=== PATIENT | male | born 1945 | race Caucasian/White ===

== ENCOUNTER 2020-09-27 19:11 | Observation (INO) | payer OTHER ==
[2020-09-27] MEDS ORDERED: ONDANSETRON 4 MG/2 ML VIAL ONE (19:41)
[2020-09-27] MEDS ORDERED: FAMOTIDINE 20 MG/2 ML VIAL IV ONE (19:51)
[2020-09-27] MEDS ORDERED: NA CHLORIDE 0.9% 1,000 ML ONE ×2 (19:51→21:50)
--- NOTE | 2020-09-27 19:57 | RAD REPORT ---
EXAM DESCRIPTION: CT - Head Brain Wo Cont - 09/27/2020 7:43 pm CLINICAL HISTORY: Dizziness;Weakness Headache, drowsiness COMPARISON: HEAD BRAIN W O CONTRAST dated 01/05/2015; MR STROKE PROTOCOL dated 01/06/2015 TECHNIQUE: All CT scans are performed using dose optimization technique as appropriate and may inclu de automated exposure control or mA/KV adjustment according to patient size. FINDINGS: No intracranial hemorrhage, hydrocephalus or extra-axial fluid collection.Mild generalized brain atrophy.No areas of brain edema or evidence of midline shift. The paranasal sinuses and mastoids are clear. The calvarium is intact. IMPRESSION: No acute intracranial abnormality.
--- NOTE | 2020-09-27 19:59 | RAD REPORT ---
EXAM DESCRIPTION: RAD - Chest Single View - 09/27/2020 7:52 pm CLINICAL HISTORY: COUGH Chest pain. COMPARISON: CHEST SINGLE VIEW dated 01/06/2015; CHEST SINGLE VIEW dated 01/05/2015 FINDINGS: Portable technique limits examination quality. The lungs are underinflated but grossly clear. The heart is normal in size. No displaced fractures. IMPRESSION: No acute intrathoracic process suspected.
[2020-09-27 20:04] LABS: Absolute Lymphocytes (CBC) 2.1 K/uL (0.7-4.9); Basophils % 0.7 % (0-1.3); Hematocrit 38.6 % (39.6-49.0); Lymphocytes % 39.3 % (15.3-44.8); MPV 8.9 fL (7.6-11.3); RBC Red Blood Cell Count 4.02 M/uL (4.33-5.43)
[2020-09-27 20:07] LABS: Protime INR 0.97
[2020-09-27 20:14] LABS: ALT/SGPT 18 U/L (12-78); AST/SGOT 18 U/L (15-37); Albumin 3.3 g/dL (3.4-5.0); Alkaline Phosphatase 71 U/L (45-117); BUN Blood Urea Nitrogen 18 mg/dL (7-18); Bicarbonate 20 mmol/L (21-32); Bilirubin Direct < 0.1 mg/dL (0-0.2); Bilirubin Total 0.4 mg/dL (0.2-1.0); Glucose Level 108 mg/dL (74-106); Lipase 257 U/L (73-393); Magnesium 2.3 mg/dL (1.8-2.4); NT PRO-BNP 939 pg/mL (<450); Potassium 3.8 mmol/L (3.5-5.1); Protein, Total 6.8 g/dL (6.4-8.2); Sodium Level 140 mmol/L (136-145); Troponin (Emerg Dept Use Only) < 0.02 ng/mL (0.0-0.045)
--- NOTE | 2020-09-27 20:53 | RAD REPORT ---
EXAM DESCRIPTION: - CP - 09/27/2020 8:31 pm CLINICAL HISTORY: Dizziness;Syncope COMPARISON: CAROTID ARTERY BILATERAL dated 01/05/2015 TECHNIQUE: Real-time sonographic evaluation of both carotid systems was performed. Doppler interroga tion was performed with waveform tracing bilaterally. FINDINGS: Normal high resistance waveforms are noted in both external carotid arteries. The common c arotid arteries and internal carotid arteries show normal low resistance waveforms. Moderate hard plaque is seen involving both carotid bulbs. Visually, carotid bulb narrowing is estima ti at 50% based on NASCET criteria. No hemodynamically significant stenosis identified. Antegrade flow seen in both vertebral arteries. IMPRESSION: Moderate hard plaquing involving both proximal internal carotid arteries. No evidence of a hemodynamically significant stenosis.
--- NOTE | 2020-09-27 21:13 | RAD REPORT ---
EXAM DESCRIPTION: US - Extrem Venous W Compress Yemi - 09/27/2020 9:06 pm CLINICAL HISTORY: SWELLING Bilateral leg edema and swelling. COMPARISON: No comparisons TECHNIQUE: Real-time sonographic interrogation of the left and right lower extremity deep venous sys tems was performed. FINDINGS: Normal compressibility, flow augmentation, phasic flow and spontaneous flow is identified in both the left and right lower extremity deep venous systems. IMPRESSION: No sonographic evidence of left or right lower extremity deep venous thrombosis.
--- NOTE | 2020-09-27 21:19 | EDPHYS ---
Physician Documentation [facility] Name: Luis Joyner Age: 75 yrs Sex: Male : 1945 Arrival Date: 09/27/2020 Time: 19:10 Bed 6 Private MD: ED Physician Conrad Holguin HPI: 09/27 19:34 This 75 yrs old Male presents to ER via Wheelchair with complaints of Near gil Syncope, Vomiting. 19:34 The patient has experienced near-syncope, almost passed out, felt dizzy, felt generally gil weak. Onset: The symptoms/episode began/occurred just prior to arrival. Duration: This was a single episode, that lasted 20 second(s). Context: the episode(s) was witnessed, by family, occurred at home. Associated injury: The patient did not suffer any apparent associated injury. Associated signs and symptoms: The patient has no apparent associated signs or symptoms. Current symptoms: weak, nausea. The patient has not experienced similar symptoms in the past. Historical: - Allergies: 19:20 No Known Allergies; ss - PMHx: 19:20 Viral encephalitis; polio; Ischemic Stroke; Hypothyroidism; ss - PSHx: 19:20 Appendectomy; ss - Immunization history:: Adult Immunizations up to date. - Social history:: Smoking status: Patient denies any tobacco usage or history of. - Family history:: not pertinent. ROS: 19:34 Constitutional: Negative for fever, chills, and weight loss, Eyes: Negative for injury, gil pain, redness, and discharge, ENT: Negative for injury, pain, and discharge, Neck: Negative for injury, pain, and swelling, Cardiovascular: Negative for chest pain, palpitations, and edema, Respiratory: Negative for shortness of breath, cough, wheezing, and pleuritic chest pain, Back: Negative for injury and pain, : Negative for injury, bleeding, discharge, and swelling, MS/Extremity: Negative for injury and deformity, Skin: Negative for injury, rash, and discoloration, Psych: Negative for depression, anxiety, suicide ideation, homicidal ideation, and hallucinations, Allergy/Immunology: Negative for hives, rash, and allergies, Endocrine: Negative for neck swelling, polydipsia, polyuria, polyphagia, and marked weight changes. 19:34 Abdomen/GI: Positive for nausea and vomiting. 19:34 Neuro: Positive for dizziness, near syncope. Exam: 19:34 Constitutional: This is a well developed, well nourished patient who is awake, alert, gil and in no acute distress. Head/Face: Normocephalic, atraumatic. Eyes: Pupils equal round and reactive to light, extra-ocular motions intact. Lids and lashes normal. Conjunctiva and sclera are non-icteric and not injected. Cornea within normal limits. Periorbital areas with no swelling, redness, or edema. ENT: Nares patent. No nasal discharge, no septal abnormalities noted. Tympanic membranes are normal and external auditory canals are clear. Oropharynx with no redness, swelling, or masses, exudates, or evidence of obstruction, uvula midline. Mucous membranes moist. Neck: Trachea midline, no thyromegaly or masses palpated, and no cervical lymphadenopathy. Supple, full range of motion without nuchal rigidity, or vertebral point tenderness. No Meningismus. Chest/axilla: Normal chest wall appearance and motion. Nontender with no deformity. No lesions are appreciated. Respiratory: Lungs have equal breath sounds bilaterally, clear to auscultation and percussion. No rales, rhonchi or wheezes noted. No increased work of breathing, no retractions or nasal flaring. Abdomen/GI: Soft, non-tender, with normal bowel sounds. No distension or tympany. No guarding or rebound. No evidence of tenderness throughout. Back: No spinal tenderness. No costovertebral tenderness. Full range of motion. Male : Normal genitalia with no discharge or lesions. Skin: Warm, dry with normal turgor. Normal color with no rashes, no lesions, and no evidence of cellulitis. MS/ Extremity: Pulses equal, no cyanosis. Neurovascular intact. Full, normal range of motion. Neuro: Awake and alert, GCS 15, oriented to person, place, time, and situation. Cranial nerves II-XII grossly intact. Motor strength 5/5 in all extremities. Sensory grossly intact. Cerebellar exam normal. Normal gait. Psych: Awake, alert, with orientation to person, place and time. Behavior, mood, and affect are within normal limits. 19:34 Cardiovascular: Rate: bradycardic, Rhythm: regular, Pulses: no pulse deficits are appreciated, Heart sounds: normal, Edema: 2+ edema to level of left midcalf and right midcalf, JVD: is not appreciated. 19:40 ECG was reviewed by the Attending Physician. gil 20:44 Abdomen/GI: Inspection: abdomen appears normal, Bowel sounds: normal, Palpation: gil abdomen is soft and non-tender, Rectal exam: is unremarkable, Prostate: normal, rectal tone normal, Stool: guaiac negative, hemorrhoid(s), are not appreciated, mass, is not appreciated, swelling, is not appreciated, tenderness, is not appreciated, fecal impaction, is not appreciated, Liver: no appreciated palpable abnormalities, Hernia: not appreciated. Vital Signs: 19:11 BP 156 / 79; Pulse 61; Resp 18; Temp 96.9(TE); Pulse Ox 98% on R/A; Weight 88 kg; ss Height 5 ft. 9 in. (175.26 cm); Pain 0/10; 22:19 BP 152 / 80; Pulse 66; Resp 18; Temp 97.2; Pulse Ox 100% on R/A; sg 19:11 Body Mass Index 28.65 (88.00 kg, 175.26 cm) ss MDM: 19:29 Patient medically screened. gil 19:38 Differential Diagnosis: cardiac arrhythmia, cerebrovascular accident, GI bleed, gil idiopathic syncope, pseudo seizure, seizure, transient ischemic attack, vasovagal episode. Data reviewed: vital signs, nurses notes, lab test result(s), EKG, radiologic studies, CT scan, plain films. Data interpreted: potline monitor: rate is 61 beats/min, rhythm is regular, with no ectopy, Pulse oximetry: on room air is 98 %. Test interpretation: by ED physician or midlevel provider: ECG, plain radiologic studies. Counseling: I had a detailed discussion with the patient and/or guardian regarding: the historical points, exam findings, and any diagnostic results supporting the discharge/admit diagnosis, lab results, radiology results. 09/27 19:32 Order name: Basic Metabolic Panel [facility] 09/27 18: Order name: CBC with Diff [facility] 09/27 18:32 Order name: LFT's [facility] 09/27 18:32 Order name: Magnesium; Complete Time: 20:19 [facility] 09/27 19:32 Order name: NT PRO-BNP; Complete Time: 20:19 [facility] 09/27 18:32 Order name: PT-INR; Complete Time: 20:34 [facility] 09/27 19:32 Order name: Troponin (emerg Dept Use Only); Complete Time: 20:19 [facility] 09/27 19:32 Order name: Lipase; Complete Time: 20:19 [facility] 09/27 19:32 Order name: Type And Screen; Complete Time: 21:11 [facility] 09/27 19:32 Order name: D-Dimer; Complete Time: 20:34 [facility] 09/27 19:33 Order name: Glucose, Ancillary Testing; Complete Time: 19:33 EDPR 09/27 19:33 Order name: Basic Metabolic Panel; Complete Time: 20:19 EDPR 09/27 19:33 Order name: CBC with Automated Diff; Complete Time: 20:34 EDPR 09/27 19:32 Order name: XRAY Chest (1 view); Complete Time: 20:02 [facility] 09/27 19:32 Order name: CT Head Brain wo Cont; Complete Time: 20:02 [facility] 09/27 19:32 Order name: US Carotid Artery Bilateral; Complete Time: 21:11 [facility] 09/27 19:33 Order name: Liver (Hepatic) Function; Complete Time: 20:19 [facility] 09/27 19:41 Order name: TSH; Complete Time: 20:34 [facility] 09/27 20:36 Order name: CT Chest Abdomen Pelvis W/O Contrast: new onset rf 09/27 20:36 Order name: US Extremity Venous W Compression Yemi; Complete Time: 21:35 [facility] 09/27 20:47 Order name: ETOH Level; Complete Time: 21:35 [facility] 09/27 21:23 Order name: SARS-COV-2 RT PCR; Complete Time: 21:35 [facility] 09/27 21:40 Order name: ABO/RH no charge; Complete Time: 21:44 [facility] 09/27 19:32 Order name: EKG; Complete Time: 19:33 [facility] 09/27 19:32 Order name: Cardiac monitoring; Complete Time: 19:39 [facility] 09/27 19:32 Order name: EKG - Nurse/Tech; Complete Time: 19:39 [facility] 09/27 19:32 Order name: IV Saline Lock; Complete Time: 19:39 [facility] 09/27 19:32 Order name: Labs collected and sent; Complete Time: 19:39 [facility] 09/27 19:32 Order name: O2 Per Protocol; Complete Time: 19:39 [facility] 09/27 19:32 Order name: O2 Sat Monitoring; Complete Time: 19:39 gil EC:40 Rate is 55 beats/min. Rhythm is regular. QRS [place] is Normal. CT interval is normal. QRS gil interval is normal. QT interval is normal. No Q waves. T waves are Normal. No ST changes noted. Clinical impression: Sinus bradycardia and No evidence of ischemia. Interpreted by me. Reviewed by me. Administered Medications: Discontinued: NS 0.9% 1000 ml IV at 125 ml/hr continuous 19:28 Drug: Zofran (Ondansetron) 4 mg Route: IVP; Site: right antecubital; mg2 22:43 Follow up: Response: No adverse reaction mg2 19:38 Drug: Pepcid 20 mg Route: IVP; Site: right antecubital; mg2 19:39 Drug: NS 0.9% 1000 ml Route: IV; Rate: 125 ml/hr; Site: right antecubital; mg2 21:42 Drug: Thiamine 100 mg Route: IV; Rate: bolus; Site: right antecubital; mg2 22:43 Follow up: Response: No adverse reaction; IV Status: Completed infusion mg2 21:42 Drug: Banana Bag - (NS 0.9% 1000 ml, foLIC Acid 1 mg, Thiamine 100 mg, Multivitamin 1 mg2 amp) Route: IV; Rate: 125 ml/hr; Site: right antecubital; 22:43 Follow up: Response: No adverse reaction; IV Status: Infusion continued upon admission mg2 22:41 Drug: Lovenox 60 mg Route: Sub-Q; Site: right lower abdomen; mg2 22:42 Follow up: Response: No adverse reaction mg2 Disposition: 09/27/20 21:19 Hospitalization ordered by Ministerio Chase for Inpatient Admission. Preliminary diagnosis are Syncope and collapse - x 2, Acute kidney failure, Edema, unspecified, Vomiting - alcohol ingestion, Alcohol abuse with intoxication. - Bed requested for Telemetry/MedSurg (observation). - Status is Inpatient Admission. mg2 - Condition is Fair. - Problem is new. - Symptoms have improved. Signatures: Dispatcher [employer] EDMS Serina Maldonado RN RN dw Anderson, Corey, MD MD cha Smirch, Shelby, RN RN ss Gardose, Michele, RN RN mg2 Corrections: (The following items were deleted from the chart) 20:17 19:33 CORONAVIRUS+MR.LAB.BRZ ordered. EDMS EDMS 20:39 20:38 Extrem Venous W Compress Yemi ordered. EDMS EDMS 21:33 21:19 Hospitalization Ordered by Ministerio Chase MD for Inpatient Admission. Preliminary dw diagnosis is Syncope and collapse - x 2; Acute kidney failure; Edema, unspecified; Vomiting - alcohol ingestion. Bed requested for Telemetry/MedSurg (observation). Status is Inpatient Admission. Condition is Fair. Problem is new. Symptoms have improved. gil 21:36 21:33 09/27/2020 21:19 Hospitalization Ordered by Ministerio Chase MD for Inpatient gil Admission. Preliminary diagnosis is Syncope and collapse - x 2; Acute kidney failure; Edema, unspecified; Vomiting - alcohol ingestion. Bed requested for Telemetry/MedSurg (observation). Status is Inpatient Admission. Condition is Fair. Problem is new. Symptoms have improved. dw 22:44 21:36 09/27/2020 21:19 Hospitalization Ordered by Ministerio Chase MD for Inpatient mg2 Admission. Preliminary diagnosis is Syncope and collapse - x 2; Acute kidney failure; Edema, unspecified; Vomiting - alcohol ingestion; Alcohol abuse with intoxication. Bed requested for Telemetry/MedSurg (observation). Status is Inpatient Admission. Condition is Fair. Problem is new. Symptoms have improved. gil
--- NOTE | 2020-09-27 21:19 | ER ---
Nurse's Notes [facility] Name: Luis Joyner Age: 75 yrs Sex: Male : 1945 Arrival Date: 09/27/2020 Time: 19:10 Bed 6 Private MD: Diagnosis: Syncope and collapse-x 2;Acute kidney failure;Edema, unspecified;Vomiting-alcohol ingestion;Alcohol abuse with intoxication Presentation: 09/27 19:11 Chief complaint: Patient states: "I was cooking and I looked up and got real dizzy and ss that's the last thing I remember. My got my attention and that's when we came here." Syncopal episode was observed by upon arrival to ED. When ED staff got to patient, he was noted to be pale, cool and clammy. Coronavirus screen: Client denies travel out of the [place] in the last 14 days. Ebola Screen: Patient denies exposure to infectious person. Patient denies travel to an Ebola-affected area in the 21 days before illness onset. Initial Sepsis Screen: Does the patient meet any 2 criteria? No. Patient's initial sepsis screen is negative. Does the patient have a suspected source of infection? No. Patient's initial sepsis screen is negative. Risk Assessment: Do you want to hurt yourself or someone else? Patient reports no desire to harm self or others. Onset of symptoms was September 27, 2020. 19:11 Method Of Arrival: Wheelchair ss 19:11 Acuity: KAELA 3 ss 20:47 Note pt admits to drinking wine this evening. 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 - Social history:: Smoking status: Patient denies any tobacco usage or history of. - Family history:: not pertinent. Screenin:21 Abuse screen: Denies threats or abuse. Denies injuries from another. Nutritional mg2 screening: No deficits noted. Tuberculosis screening: No symptoms or risk factors identified. Fall Risk IV access (20 points). Assessment: 19:20 General: Appears in no apparent distress. comfortable, Behavior is calm, cooperative. mg2 Pain: Denies pain. Neuro: Level of Consciousness is awake, alert, obeys commands, Oriented to person, place, time, situation. Cardiovascular: Capillary refill < 3 seconds Patient's skin is warm and dry. Respiratory: Airway is patent Respiratory effort is even, unlabored, Respiratory pattern is regular, symmetrical. GI: Abdomen is non-distended. : No signs and/or symptoms were reported regarding the genitourinary system. EENT: No signs and/or symptoms were reported regarding the EENT system. Derm: Skin is intact, is healthy with good turgor, Skin is pink, warm \\T\\ dry. normal. Musculoskeletal: Circulation, motion, and sensation intact. Capillary refill < 3 seconds. 22:18 Reassessment: requesting this patient to wait in the ED for CT scan results sg and Lovenox SubQ pending order. pt to remain in the ED at this time. Vital Signs: 19:11 BP 156 / 79; Pulse 61; Resp 18; Temp 96.9(TE); Pulse Ox 98% on R/A; Weight 88 kg; ss Height 5 ft. 9 in. (175.26 cm); Pain 0/10; 22:19 BP 152 / 80; Pulse 66; Resp 18; Temp 97.2; Pulse Ox 100% on R/A; sg 19:11 Body Mass Index 28.65 (88.00 kg, 175.26 cm) ED Course: 19:10 Patient arrived in ED. ss 19:11 Solomon Jones, RN is Primary Nurse. mg2 19:18 Triage completed. ss 19:20 Arm band placed on right wrist. ss 19:20 No provider procedures requiring assistance completed. Inserted saline lock: 20 gauge mg2 in right antecubital area, using aseptic technique. Blood collected. 19:21 Patient has correct armband on for positive identification. mg2 19:29 Conrad Holguin MD is Attending Physician. gil 19:43 CT Head Brain wo Cont In Process Unspecified. EDMS 19:50 XRAY Chest (1 view) In Process Unspecified. EDMS 20:27 Notified ED physician of a critical lab result(s). D Dimer 768. sg 20:31 US Carotid Artery Bilateral In Process Unspecified. EDMS 21:06 US Extremity Venous W Compression Yemi In Process Unspecified. EDMS 21:16 Ministerio Chase MD is Hospitalizing Provider. [facility] 22:40 Patient admitted, IV remains in place. intact, No redness/swelling at site. sg Administered Medications: Discontinued: NS 0.9% 1000 ml IV at 125 ml/hr continuous 19:28 Drug: Zofran (Ondansetron) 4 mg Route: IVP; Site: right antecubital; mg2 22:43 Follow up: Response: No adverse reaction mg2 19:38 Drug: Pepcid 20 mg Route: IVP; Site: right antecubital; mg2 19:39 Drug: NS 0.9% 1000 ml Route: IV; Rate: 125 ml/hr; Site: right antecubital; mg2 21:42 Drug: Thiamine 100 mg Route: IV; Rate: bolus; Site: right antecubital; mg2 22:43 Follow up: Response: No adverse reaction; IV Status: Completed infusion mg2 21:42 Drug: Banana Bag - (NS 0.9% 1000 ml, foLIC Acid 1 mg, Thiamine 100 mg, Multivitamin 1 mg2 amp) Route: IV; Rate: 125 ml/hr; Site: right antecubital; 22:43 Follow up: Response: No adverse reaction; IV Status: Infusion continued upon admission mg2 22:41 Drug: Lovenox 60 mg Route: Sub-Q; Site: right lower abdomen; mg2 22:42 Follow up: Response: No adverse reaction mg2 Outcome: 21:19 Decision to Hospitalize by Provider. [facility] 22:40 Admitted to Tele accompanied by tech, via wheelchair, room 203, with chart, Report sg called to Tasneem GAGE 22:40 Condition: stable 22:40 Instructed on the need for admit, safety practices, Demonstrated understanding of instructions, follow-up care. 22:44 Patient left the ED. mg2 Signatures: Dispatcher [employer] EDMS Jules Suarez RN RN sg Anderson, Corey, MD MD cha Smirch, Shelby, RN RN ss Gardose, Michele, RN RN mg2
[2020-09-27] MEDS ORDERED: THIAMINE 200 MG/2 ML INJ ONE (21:50)
[2020-09-27] MEDS ORDERED: MULTIVITAMINS 10 ML VIAL (INJ) IV ONE (21:51)
[2020-09-27] MEDS ORDERED: FOLIC ACID 5 MG/ML VIAL ONE (21:51)
[2020-09-27] MEDS ORDERED: ACETAMINOPHEN 325 MG TABLET PO PRN (22:06)
[2020-09-27] MEDS ORDERED: ONDANSETRON 4 MG/2 ML VIAL IV PRN (22:06)
[2020-09-27] MEDS ORDERED: ENOXAPARIN 40 MG/0.4 ML SQ ONE (22:55)
[2020-09-27 23:39] VITALS: BMI 29.1
[2020-09-28 04:43] VITALS: O2SAT 96
[2020-09-28 05:51] LABS: Absolute Lymphocytes (CBC) 0.9 K/uL (0.7-4.9); Basophils % 0.8 % (0-1.3); Hematocrit 33.5 % (39.6-49.0); MPV 8.8 fL (7.6-11.3); RBC Red Blood Cell Count 3.52 M/uL (4.33-5.43)
[2020-09-28 06:01] LABS: Potassium 4.3 mmol/L (3.5-5.1)
--- NOTE | 2020-09-28 07:08 | RAD REPORT ---
EXAM DESCRIPTION: RAD - Chest Single View - 09/28/2020 4:45 am CLINICAL HISTORY: Chest Pain COMPARISON: Portable September 27 TECHNIQUE: AP portable chest image was obtained 09/28/2020 4:45 am . FINDINGS: Lungs are clear. Cardiac silhouette remains enlarged in part due to prominent bilateral pe ricardial fat pads. Pulmonary vasculature within normal limits. No measurable pleural effusion and no pneumothorax. No acute bony abnormality seen. No acute aortic findings suspected. IMPRESSION: No acute cardiopulmonary process. No significant change from comparison.
[2020-09-28] MEDS ORDERED: ASPIRIN EC 81 MG TAB PO SCH (09:00)
[2020-09-28] MEDS ORDERED: CLOPIDOGREL 75 MG TABLET PO SCH (09:00)
[2020-09-28] MEDS ORDERED: ENOXAPARIN 60 MG/0.6 ML SQ SCH (09:00)
[2020-09-28] MEDS ORDERED: FOLIC ACID 1 MG, MULTIVITAMINS INJ 10 ML, THIAMINE HCL 100 MG in NA CHLORIDE 0.9% 1,000 ML IV SCH (09:00)
[2020-09-28] MEDS ORDERED: FAMOTIDINE 20 MG/2 ML VIAL IV SCH (09:00)
--- NOTE | 2020-09-28 09:20 | RAD REPORT ---
EXAM DESCRIPTION: NM - Vent Perfusion VQ Scan - 09/28/2020 9:12 am CLINICAL HISTORY: pe, shortness of breath COMPARISON: Noncontrast CT chest September 27, portable chest September 28 TECHNIQUE: The patient was administered approximately 20 mCi Xenon 133 gas with posterior projection inspiration, equilibrium, and washout views obtained. The patient was then administered approximatel y 7 mCi Tc-99m MAA labeled RBCs followed by standard 8 view protocol. FINDINGS: There is good distribution of the Xenon with no ventilation defects identified. Washout vi ews show a mild bilateral air trapping pattern. Perfusion images show no defects suspicious for pulmonary emboli. IMPRESSION: No evidence for pulmonary embolic disease. Mild diffuse air trapping pattern.
[2020-09-28 10:54] VITALS: BP 156/72; TEMP 98.8
--- NOTE | 2020-09-28 12:04 | P.SSS ---
Patient History Date of Service: 09/28/20 Reason for admission: SYNCOPE History of Present Illness: MR. FRENCH HAS HAD HISTORY OF ORTHOSTATIC HYPOTENSION HE HAS PASSED OUT MANY TIMES. HE STARTED DRINKNIG ALCOHOL AND PASSED OUT. HE IS BACK TO BASELINE. DR. MAYS DID ABOUT 12 IMAGING TESTS FOR THIS VISIT. HE POSSIBLY DID NOT NEED ANY. HE IS STABLE. HE WILL WALK BEFORE HE GOES. HE WILL BE CAREFUL TO USE WALKER AND NOT DRINK. HIS IS A VERY SMART LADY AND KNOWS HOW TO TAKE CARE OF HIM. Allergies No Known Allergies Allergy (Verified 01/06/15 02:40) Home Medications: Clopidogrel Bisulfate [Plavix*] 1 tab PO DAILY 09/27/20 Finasteride 5 mg PO DAILY 09/27/20 Folic Acid 1 tab PO DAILY 09/27/20 Levothyroxine Sodium 1 tab PO DAILY 09/27/20 Mecobalamin [B12 Active] 1 tab PO DAILY 09/27/20 Multivitamin 1 tab PO DAILY 09/27/20 Simvastatin 20 mg PO BEDTIME 09/27/20 Tamsulosin [Flomax*] 1 tab PO BID 09/27/20 Vit D3/Vit K2/Calc Frutoborate [Move Free Heysq-Tfblzu-W5-D3] 1 tab PO BEDTIME 09/27/20 bisoproloL fumarate [Zebeta*] 5 mg PO BID 09/27/20 - Past Medical/Surgical History Has patient received pneumonia vaccine in the past: Yes Diabetic: No -: polio -: spinal meningitis -: appy - Social History Smoking Status: Never smoker Alcohol use: Yes CD- Drugs: No Caffeine use: Yes Place of Residence: Home Review of Systems 10-point ROS is otherwise unremarkable Physical Examination - Vital Signs Temperature: 98.8 F Blood Pressure: 156/72 Pulse: 66 Respirations: 18 Pulse Ox (%): 94 - Physical Exam General: Alert, In no apparent distress HEENT: Atraumatic, PERRLA, Mucous membr. moist/pink, EOMI, Sclerae nonicteric Neck: Supple, 2+ carotid pulse no bruit, No LAD, Without JVD or thyroid abnormality Respiratory: Clear to auscultation bilaterally, Normal air movement Cardiovascular: Regular rate/rhythm, Normal S1 S2 Gastrointestinal: Normal bowel sounds, No tenderness Musculoskeletal: No tenderness Integumentary: No rashes Neurological: Normal gait, Normal speech, Normal strength at 5/5 x4 extr, Normal tone, Normal affect Lymphatics: No axilla or inguinal lymphadenopathy - Studies Laboratory Data (last 24 hrs) 09/27/20 19:35: PT 11.5, INR 0.97 09/27/20 19:35: WBC 5.2, Hgb 12.9 L, Hct 38.6 L, Plt Count 148 L 09/27/20 19:35: Sodium 140, Potassium 3.8, BUN 18, Creatinine 1.39 H, Glucose 108 H, Magnesium 2.3, Total Bilirubin 0.4, AST 18, ALT 18, Alkaline Phosphatase 71, Lipase 257 - Diagnosis (Problem(s)) (1) Orthostatic hypotension Current Visit: Yes Status: Acute Plan: THIS IS NOT NEW FOR HIM KNOWS HOW TO TAKE CARE OF THIS. THERE IS NO EVENT LIKE STROKE OR WA. (2) ETOH abuse Onset Date: 01/06/15 Current Visit: No Status: Acute - Disposition Disposition: ROUTINE DISCHARGE
--- NOTE | 2020-09-28 14:11 | ECHO ---
HEIGHT: 5 ft 9 in WEIGHT: 197 lb 8 oz DATE OF STUDY: 09/28/[address]: Conrad Holguin MD 2-DIMENSIONAL: YES M.MODE: YES DOPPLER: YES COLOR FLOW: YES TDS: NO PORTABLE: NO DEFINITY: NO BUBBLE STUDY: NO DIAGNOSIS: SYNCOPE CARDIAC HISTORY: CATHERIZATION: NO SURGERY: NO PROSTHETIC VALVE: NO PACEMAKER: NO MEASUREMENTS (cm) DIASTOLIC (NORMALS) SYSTOLIC (NORMALS) IVSd 1.2 (0.6-1.2) LA Diam 4.0 (1.9-4.0) LVEF 54% LVIDd 3.3 (3.5-5.7) LVIDs 2.4 (2.0-3.5) %FS 27% LVPWd 1.2 (0.6-1.2) Ao Diam 3.4 (2.0-3.7) 2 DIMENSIONAL ASSESSMENT: RIGHT ATRIUM: NORMAL LEFT ATRIUM: NORMAL RIGHT VENTRICLE: NORMAL LEFT VENTRICLE: NORMAL TRICUSPID VALVE: NORMAL MITRAL VALVE: MITRAL REGURGITATION PULMONIC VALVE: NORMAL AORTIC VALVE: NORMAL PERICARDIAL EFFUSION: NONE AORTIC ROOT: NORMAL LEFT VENTRICULAR WALL MOTION: NORMAL. DOPPLER/COLOR FLOW: SEE BELOW. COMMENTS: NORMAL LEFT VENTRICULAR EJECTION FRACTION 55-60%. MILD MITRAL REGURGITATION. POOR WINDOWS. TECHNOLOGIST: BALBINA RAMOS
--- NOTE | 2020-09-28 14:38 | RAD REPORT ---
EXAM DESCRIPTION: CT - Chest Abd Pelvis Wo Con - 09/28/2020 7:13 am CLINICAL HISTORY: The patient is 75 years old and is Male; Abdominal distention;Dyspnea TECHNIQUE: Axial computed tomography images of the chest, abdomen and pelvis without intravenous con trast. Sagittal and coronal reformatted images were created and reviewed. This CT exam was perfor med using one or more of the following dose reduction techniques: automated exposure control, adjus tment of the mA and/or kV according to patient size, and/or use of iterative reconstruction technique . COMPARISON: July 26, 2016 FINDINGS: CHEST: Lungs: Minimal subsegmental atelectasis or scarring at the left minor fissure. No focal lung cons olidation seen otherwise. Pleural space: Unremarkable. No significant effusion. No pneumothorax. Heart: Coronary arterial calcifications. Heart size within normal limits. No pericardial effusion. ABDOMEN: Liver: Unremarkable. Gallbladder and bile ducts: Hyperdense material seen within the gallbladder, likely sludge. No calcified stones. No ductal dilation. Pancreas: Unremarkable. No ductal dilation. Spleen: Unremarkable. No splenomegaly. Adrenals: Unremarkable. No mass. Kidneys and ureters: Right atrophic kidney, similar to prior. Nonspecific left perinephric strand ing, similar to prior. No hydronephrosis or nephrolithiasis. Stomach and bowel: Unremarkable. No obstruction. No mucosal thickening. PELVIS: Appendix: No findings to suggest acute appendicitis. Bladder: Unremarkable. No stones. Reproductive: Unremarkable as visualized. CHEST, ABDOMEN and PELVIS: Intraperitoneal space: Unremarkable. No significant fluid collection. No free air. Bones/joints: Spine and joint changes. No acute fracture. No dislocation. Soft tissues: Moderate left fat-containing inguinal hernia. Vasculature: Atherosclerotic vascular calcifications. No aortic aneurysm. Lymph nodes: Unremarkable. No enlarged lymph nodes. IMPRESSION: 1. No acute intra-abdominal abnormality. 2. Minimal subsegmental atelectasis or scarring at the left minor fissure. No focal lung consolidat ion seen otherwise. 3. Hyperdense material seen within the gallbladder, likely sludge. 4. See above for additional findings. Electronically signed by: Orion Tinsley MD 09/27/2020 10:20 PM CONCRETE SAW OPERATOR Due to temporary technical issues with the PACS/Fluency reporting system, reports are being signed by the in house radiologists without review as a courtesy to insure prompt reporting. The interpreting radiologist is fully responsible for the content of the report.
== END 2020-09-28 13:57 | disposition home or self-care (01) ==
LOC: ER 19:11 → ERHOLD 21:21 → 2ND 21:40
PROVIDERS: ADMIT Internal Medicine; ATTEND Internal Medicine
DX: I95.1 Orthostatic hypotension (principal); F10.10 Alcohol abuse, uncomplicated; Z86.73 Personal history of transient ischemic attack (TIA), and cerebral infarction without residual deficits; E03.9 Hypothyroidism, unspecified; Y90.3 Blood alcohol level of 60-79 mg/100 ml; R94.31 Abnormal electrocardiogram [ECG] [EKG]; Z20.822 Contact with and (suspected) exposure to COVID-19
CPT/HCPCS: 96365; 96368; 93306; 85025 ×2; 80048 ×2; 36415; 80320; 86900; 83735; 86850; 85610; 86901; 82947; 85379; 80076; 84443; 84484 ×3; 83690; 83880; 70450; 71250; 74176; 71045 ×2; 93880; 93970; 78582; 96375; 96372; 99285; U0003; J3411; J1650 ×2; J7030 ×2; J2405; A9558; A9540

== ENCOUNTER 2021-04-07 05:49 | Observation (INO) | payer OTHER ==
[2021-04-07 06:52] LABS: Absolute Lymphocytes (CBC) 1.1 K/uL (0.7-4.9); Basophils % 0.6 % (0-1.3); Hematocrit 40.4 % (39.6-49.0); Lymphocytes % 17.8 % (15.3-44.8); MPV 8.4 fL (7.6-11.3); Protime INR 1.01; RBC Red Blood Cell Count 4.68 M/uL (4.33-5.43)
[2021-04-07] MEDS ORDERED: ONDANSETRON 4 MG/2 ML VIAL ONE (06:58)
[2021-04-07] MEDS ORDERED: NITROGLYCERIN 0.4 MG/TAB SL ONE (06:59)
[2021-04-07 07:10] LABS: Albumin 3.9 g/dL (3.4-5.0); Bilirubin Direct 0.2 mg/dL (0-0.2); Bilirubin Total 0.6 mg/dL (0.2-1.0); Magnesium 2.2 mg/dL (1.8-2.4); Potassium 3.8 mmol/L (3.5-5.1); Protein, Total 7.5 g/dL (6.4-8.2); Troponin (Emerg Dept Use Only) 0.03 ng/mL (0.0-0.045)
[2021-04-07] MEDS ORDERED: LIDOCAINE VISCOUS 2% SOLN 15 ML UDC ONE (07:11)
[2021-04-07] MEDS ORDERED: MAGNES/ALUMIN/SIMET 30ML UCUP ONE (07:11)
--- NOTE | 2021-04-07 07:43 | RAD REPORT ---
EXAM DESCRIPTION: RAD - Chest Single View - 04/07/2021 7:08 am CLINICAL HISTORY: CHEST PAIN COMPARISON: Chest Single View dated 09/28/2020; Chest Single View dated 09/27/2020; CHEST SINGLE VIEW dated 01/06/2015; CHEST SINGLE VIEW dated 01/05/2015; Abdomen Exam Limited dated 04/07/2021 FINDINGS: Low lung volumes with basilar opacities likely represent atelectasis. The heart size is wi thin normal limits.No acute osseous abnormality. No significant pleural effusions or pneumothorax. IMPRESSION: Low lung volumes likely with basilar atelectasis.
[2021-04-07] MEDS ORDERED: MORPHINE 4 MG/ML SYR ONE ×2 (07:52→09:26)
--- NOTE | 2021-04-07 07:56 | RAD REPORT ---
EXAM DESCRIPTION: US - Abdomen Exam Limited - 04/07/2021 7:31 am CLINICAL HISTORY: ABD PAIN COMPARISON: Abdomen Pelvis W/Wo Contrast dated 07/26/2016; Chest Single View dated 04/07/2021 FINDINGS: Cholelithiasis noted. No gallbladder wall thickening is identified. No pericholecystic flu id. Visualized portions of the liver are unremarkable. No biliary ductal dilatation. IMPRESSION: Cholelithiasis without ancillary sonographic findings to suggest acute cholecystitis.
--- NOTE | 2021-04-07 08:08 | EDPHYS ---
Physician Documentation [facility] Name: Luis Joyner Age: 75 yrs Sex: Male : 1945 Arrival Date: 04/07/2021 Time: 05:52 Bed 5 Private MD: ED Physician Froylan Calvillo HPI: 04/07 07:33 This 75 yrs old Male presents to ER via Ambulatory with complaints of jr8 Epigastric Pain. 07:33 The patient presents with abdominal pain in the epigastric area. Onset: The jr8 symptoms/episode began/occurred acutely, this morning. The symptoms do not radiate. Associated signs and symptoms: Pertinent positives: nausea. The symptoms are described as steady. Modifying factors: The symptoms are alleviated by nothing, the symptoms are aggravated by nothing. Severity of pain: At its worst the pain was moderate in the emergency department the pain is unchanged. The patient has experienced a previous episode. The patient has not recently seen a physician. Patient stated that he woke up at 0100 this a.m. with abrupt onset epigastric pain that has been unrelenting since then. Has had this once before but was intermittent in nature.. Historical: - Allergies: 06:24 No Known Allergies; bb - Home Meds: 06:24 Plavix Oral [Active]; Simvastatin Oral [Active]; folic acid Oral [Active]; tamsulosin bb oral [Active]; finasteride oral [Active]; levothyroxine oral [Active]; - PMHx: 06:24 Hypothyroidism; ischemic stroke; Polio; viral encephalitis; bb - Immunization history:: Adult Immunizations up to date, Client reports having NOT received the Covid vaccine. - Social history:: Smoking status: Patient denies any tobacco usage or history of. ROS: 07:33 Eyes: Negative for injury, pain, redness, and discharge, ENT: Negative for injury, jr8 pain, and discharge, Neck: Negative for injury, pain, and swelling, Cardiovascular: Negative for chest pain, palpitations, and edema, Respiratory: Negative for shortness of breath, cough, wheezing, and pleuritic chest pain, Back: Negative for injury and pain, MS/Extremity: Negative for injury and deformity, Skin: Negative for injury, rash, and discoloration, Neuro: Negative for headache, weakness, numbness, tingling, and seizure. 07:33 Abdomen/GI: Positive for abdominal pain, nausea, diarrhea, Negative for vomiting. Exam: 07:33 Eyes: Pupils equal round and reactive to light, extra-ocular motions intact. Lids and jr8 lashes normal. Conjunctiva and sclera are non-icteric and not injected. Cornea within normal limits. Periorbital areas with no swelling, redness, or edema. ENT: Nares patent. No nasal discharge, no septal abnormalities noted. Tympanic membranes are normal and external auditory canals are clear. Oropharynx with no redness, swelling, or masses, exudates, or evidence of obstruction, uvula midline. Mucous membranes moist. Neck: Trachea midline, no thyromegaly or masses palpated, and no cervical lymphadenopathy. Supple, full range of motion without nuchal rigidity, or vertebral point tenderness. No Meningismus. Chest/axilla: Normal chest wall appearance and motion. Nontender with no deformity. No lesions are appreciated. Cardiovascular: Regular rate and rhythm with a normal S1 and S2. No gallops, murmurs, or rubs. Normal PMI, no JVD. No pulse deficits. Respiratory: Lungs have equal breath sounds bilaterally, clear to auscultation and percussion. No rales, rhonchi or wheezes noted. No increased work of breathing, no retractions or nasal flaring. Abdomen/GI: Soft, non-tender, with normal bowel sounds. No distension or tympany. No guarding or rebound. No evidence of tenderness throughout. Back: No spinal tenderness. No costovertebral tenderness. Full range of motion. Skin: Warm, dry with normal turgor. Normal color with no rashes, no lesions, and no evidence of cellulitis. MS/ Extremity: Pulses equal, no cyanosis. Neurovascular intact. Full, normal range of motion. Neuro: Awake and alert, GCS 15, oriented to person, place, time, and situation. Cranial nerves II-XII grossly intact. Motor strength 5/5 in all extremities. Sensory grossly intact. 07:33 Constitutional: The patient appears alert, in obvious pain. Vital Signs: 06:22 BP 172 / 83; Pulse 65; Resp 16 S; Temp 97.7(O); Pulse Ox 98% on R/A; Weight 88 kg (R); bb Height 5 ft. 8 in. (172.72 cm) (R); Pain 8/10; 07:30 BP 146 / 77; Pulse 61; Resp 18; Pulse Ox 100% on R/A; ph 08:30 BP 143 / 77; Pulse 58; Resp 16; Pulse Ox 97% on R/A; ph 09:24 BP 137 / 75; Pulse 59; Resp 18; Pulse Ox 95% on R/A; ph 06:22 Body Mass Index 29.50 (88.00 kg, 172.72 cm) MDM: 06:11 Patient medically screened. [facility] 07:32 Data reviewed: vital signs, nurses notes, lab test result(s), radiologic studies, jr8 ultrasound. Data interpreted: Pulse oximetry: on room air is 98 %. Interpretation: normal. Counseling: I had a detailed discussion with the patient and/or guardian regarding: the historical points, exam findings, and any diagnostic results supporting the discharge/admit diagnosis, lab results, radiology results, the need for further work-up and treatment in the hospital. ED course: Dr. Chase called and saw patient in ED. 04/07 06:27 Order name: Basic Metabolic Panel 04/07 06:27 Order name: CBC with Diff; Complete Time: 06:57 04/07 06:27 Order name: LFT's; Complete Time: 07:24 04/07 06:27 Order name: Magnesium; Complete Time: 07:24 04/07 06:27 Order name: NT PRO-BNP; Complete Time: 07:24 04/07 06:27 Order name: PT-INR; Complete Time: 07:24 04/07 06:27 Order name: Troponin (emerg Dept Use Only); Complete Time: 07:24 04/07 06:27 Order name: Basic Metabolic Panel; Complete Time: 07:24 EDLA 04/07 06:31 Order name: Lipase jr8 04/07 06:31 Order name: Lipase; Complete Time: 07:24 [facility] 04/07 09:57 Order name: SARS-COV-2 RT PCR; Complete Time: 10:06 EDLA 04/07 10:58 Order name: Troponin I; Complete Time: 11:06 EDLA 04/07 13:59 Order name: Troponin I; Complete Time: 14:38 EDLA 04/07 06:27 Order name: XRAY Chest (1 view); Complete Time: 08:06 04/07 06:27 Order name: EKG; Complete Time: 06:27 04/07 06:27 Order name: Cardiac monitoring; Complete Time: 06:27 04/07 06:27 Order name: EKG - Nurse/Tech; Complete Time: 06:27 04/07 06:27 Order name: IV Saline Lock; Complete Time: 06:27 04/07 06:27 Order name: Labs collected and sent; Complete Time: 06:27 04/07 06:27 Order name: O2 Per Protocol; Complete Time: 06:27 04/07 06:27 Order name: O2 Sat Monitoring; Complete Time: 06:27 04/07 06:48 Order name: US Abdomen Limited; Complete Time: 08:06 8 04/07 08:57 Order name: CONS Physician Consult EDMS Administered Medications: 06:42 Drug: Zofran (Ondansetron) 4 mg Route: IVP; Site: right antecubital; bb 06:42 Drug: Nitroglycerin 0.4 mg Route: Sublingual; bb 06:49 Drug: GI Cocktail without - (Maalox Suspension 30 ml, Lidocaine Liquid 2 % 15 ak2 ml) Route: PO; 07:37 Drug: morphine 4 mg Route: IVP; Site: right antecubital; ph 09:07 Drug: morphine 4 mg Route: IVP; Site: right antecubital; jd3 Disposition Summary: 04/07/21 08:07 Hospitalization Ordered Hospitalization Status: Observation 8 Provider: Ministerio Chase Condition: Stable [facility] Problem: new 8 Symptoms: have improved jr8 Bed/Room Type: Standard [facility] Location: Telemetry/MedSurg (observation)(04/07/21 14:07) dw Room Assignment: 206(04/07/21 14:07) Diagnosis - Epigastric pain jr8 - Other cholelithiasis without obstruction jr8 - Chest pain, unspecified jr8 Forms: - Medication Reconciliation Form jr8 - SBAR form jr8 Addendum: 04/08/2021 19:02 Co-signature as Attending Physician, Froylan buchanan Signatures: Dispatcher [employer] EDMS Letty Cormier RN RN sv Woody, Diana, RN RN dw Lam, Pin, MD MD pkl Ballard, Brenda, RN RN Kyle Whatley PA PA jr8 Brittani Morel RN RN Paddy Munroe RN RN jTahir García Corrections: (The following items were deleted from the chart) 04/07 09:01 08:43 CORONAVIRUS+.BRZ ordered. EDMS EDMS 09:24 08:07 Telemetry/MedSurg (observation) jr8 sv 09:24 08:07 jr8 sv 14: 09:24 [facility] ER [facility] sv dw : 09:24 ERHOLD- sv dw
--- NOTE | 2021-04-07 08:08 | ER ---
Nurse's Notes [facility] Name: Luis Joyner Age: 75 yrs Sex: Male : 1945 Arrival Date: 04/07/2021 Time: 05:52 Bed 5 Private MD: Diagnosis: Epigastric pain;Other cholelithiasis without obstruction;Chest pain, unspecified Presentation: 04/07 06:22 Chief complaint: Patient states: he started having chest pain this morning around 0100 bb and it has not gone away pain is 8/10. Coronavirus screen: At this time, the client does not indicate any symptoms associated with coronavirus-19. Ebola Screen: No symptoms or risks identified at this time. Initial Sepsis Screen: Does the patient meet any 2 criteria? No. Patient's initial sepsis screen is negative. Does the patient have a suspected source of infection? No. Patient's initial sepsis screen is negative. Risk Assessment: Do you want to hurt yourself or someone else? Patient reports no desire to harm self or others. Onset of symptoms was April 07, 2021. 06:22 Method Of Arrival: Ambulatory bb 06:22 Acuity: KAELA 2 bb Triage Assessment: 06:46 General: Behavior is calm, cooperative. ak2 Historical: - Allergies: 06:24 No Known Allergies; bb - Home Meds: 06:24 Plavix Oral [Active]; Simvastatin Oral [Active]; folic acid Oral [Active]; tamsulosin bb oral [Active]; finasteride oral [Active]; levothyroxine oral [Active]; - PMHx: 06:24 Hypothyroidism; ischemic stroke; Polio; viral encephalitis; bb - Immunization history:: Adult Immunizations up to date, Client reports having NOT received the Covid vaccine. - Social history:: Smoking status: Patient denies any tobacco usage or history of. Screenin:45 Abuse screen: Denies threats or abuse. Denies injuries from another. Nutritional ak2 screening: No deficits noted. Tuberculosis screening: No symptoms or risk factors identified. Fall Risk None identified. Assessment: 06:44 Pain: Complains of pain in chest and abdomen. GI: Reports epigastric pain. ak2 06:45 General: Appears in no apparent distress. Neuro: No deficits noted. Cardiovascular: No ak2 deficits noted. Respiratory: No deficits noted. 07:50 Reassessment: Patient appears in no apparent distress at this time. Patient and/or ph family updated on plan of care and expected duration. Pain level reassessed. Patient is alert, oriented x 3, equal unlabored respirations, skin warm/dry/pink. Pt c/o upper abdominal pain, denies nausea at this time, IV medication administered per provider order, at bedside, VSS. 09:20 Reassessment: Patient appears in no apparent distress at this time. Patient and/or ph family updated on plan of care and expected duration. Pain level reassessed. Patient is alert, oriented x 3, equal unlabored respirations, skin warm/dry/pink. Vital Signs: 06:22 BP 172 / 83; Pulse 65; Resp 16 S; Temp 97.7(O); Pulse Ox 98% on R/A; Weight 88 kg (R); bb Height 5 ft. 8 in. (172.72 cm) (R); Pain 8/10; 07:30 BP 146 / 77; Pulse 61; Resp 18; Pulse Ox 100% on R/A; ph 08:30 BP 143 / 77; Pulse 58; Resp 16; Pulse Ox 97% on R/A; ph 09:24 BP 137 / 75; Pulse 59; Resp 18; Pulse Ox 95% on R/A; ph 06:22 Body Mass Index 29.50 (88.00 kg, 172.72 cm) bb ED Course: 05:52 Patient arrived in ED. wm 06:11 Kyle Monge PA is PHCP. jr8 06:11 Froylan Calvillo MD is Attending Physician. jr8 06:20 Initial lab(s) drawn, by tx, sent to lab. Inserted saline lock: 20 gauge in right bb antecubital area, using aseptic technique. Blood collected. 06:24 Triage completed. bb 06:24 Arm band placed on Patient placed in an exam room, on a stretcher, on mule tender, bb on pulse oximetry. EKG completed in triage. Results shown to . 06:42 Lachelle Urbina, RN is Primary Nurse. bb 06:45 Patient has correct armband on for positive identification. ak2 06:45 No provider procedures requiring assistance completed. ak2 07:07 XRAY Chest (1 view) In Process Unspecified. EDMS 07:31 US Abdomen Limited In Process Unspecified. EDMS 07:57 Lipase Sent. sv 07:57 Basic Metabolic Panel Sent. sv 08:07 Ministerio Chase MD is Hospitalizing Provider. jr8 09:24 Patient admitted, IV remains in place. ph 09:24 COVID swab sent to lab. mh5 Administered Medications: 06:42 Drug: Zofran (Ondansetron) 4 mg Route: IVP; Site: right antecubital; bb 06:42 Drug: Nitroglycerin 0.4 mg Route: Sublingual; bb 06:49 Drug: GI Cocktail without - (Maalox Suspension 30 ml, Lidocaine Liquid 2 % 15 ak2 ml) Route: PO; 07:37 Drug: morphine 4 mg Route: IVP; Site: right antecubital; ph 09:07 Drug: morphine 4 mg Route: IVP; Site: right antecubital; jd3 Outcome: 08:07 Decision to Hospitalize by Provider. jr8 16:01 Patient left the ED. sv Signatures: Dispatcher [employer] EDMS Letty Cormier, RN RN Lachelle Urbina, RN RN bb Kyle Monge, KATIE PA jr8 Brittani Morel, RN RN Aggie Benitez Paddy Mauricio RN RN Tahir Shoemaker inYessy Metcalf
[2021-04-07] MEDS ORDERED: ONDANSETRON 4 MG/2 ML VIAL IV PRN (09:24)
[2021-04-07] MEDS ORDERED: MORPHINE 4 MG/ML SYR IV PRN (09:24)
[2021-04-07 10:59] VITALS: BMI 29.5
[2021-04-07] MEDS ORDERED: PNEUMOCOCCAL VACCINE 0.5 ML IMVAC ONE (14:00)
[2021-04-07] MEDS ORDERED: SODIUM CHLORIDE 0.9% 10ML INJ IV PRN (14:07)
[2021-04-07] MEDS ORDERED: ACETAMINOPHEN 325 MG TABLET PO PRN (14:14)
--- NOTE | 2021-04-07 14:14 | P.HP ---
Certification for Inpatient Patient admitted to: Inpatient With expected LOS: >2 Midnights Practitioner: I am a practitioner with admitting privileges, knowledge of patient current condition, hospital course, and medical plan of care. Services: Services provided to patient in accordance with Admission requirements found in Title 42 Section 412.3 of the Code of Federal Regulations Patient History Date of Service: 04/07/21 Reason for admission: EPIG PAIN. History of Present Illness: MR. FRENCH HAS HAD EPIG PAIN OFF AND ON FOR A FEW WEEKS. FOR LAST DAY IT IS CONSTANT AND HE COULD NOT SLEEP. IT WAS MODERATE IN SEVERITY. IT IS A SHARP PAIN, NO RADIATION, NO NAUSEA, NO DIAPHORESIS, NO VOMITING AND IT IS CONSTANT. Allergies No Known Allergies Allergy (Verified 01/06/15 02:40) Home medications list reviewed: Yes Home Medications: Clopidogrel Bisulfate [Plavix*] 1 tab PO DAILY 09/27/20 Finasteride 5 mg PO DAILY 09/27/20 Folic Acid 1 tab PO DAILY 09/27/20 Levothyroxine Sodium 1 tab PO DAILY 09/27/20 Multivitamin 1 tab PO DAILY 09/27/20 Simvastatin 20 mg PO BEDTIME 09/27/20 Tamsulosin [Flomax*] 1 tab PO BID 09/27/20 Acetaminophen [Tylenol*] 650 mg PO Q6H PRN tab 09/28/20 - Past Medical/Surgical History Has patient received pneumonia vaccine in the past: No Diabetic: No -: polio -: spinal meningitis -: appy - Family History Father Notes: Myocardial infarction - Social History Smoking Status: Former smoker Alcohol use: No CD- Drugs: No Caffeine use: Yes Place of Residence: Home Review of Systems 10-point ROS is otherwise unremarkable Physical Examination - Vital Signs Temperature: 98.0 F Blood Pressure: 149/82 Pulse: 75 Respirations: 20 Pulse Ox (%): 98 - Physical Exam General: Oriented x3, Moderate distress HEENT: Atraumatic, PERRLA, Mucous membr. moist/pink, EOMI, Sclerae nonicteric Neck: Supple, 2+ carotid pulse no bruit, No LAD, Without JVD or thyroid abnormality Respiratory: Clear to auscultation bilaterally, Normal air movement Cardiovascular: Regular rate/rhythm, Normal S1 S2 Gastrointestinal: Normal bowel sounds, No tenderness Musculoskeletal: No tenderness Integumentary: No rashes Neurological: Normal gait, Normal speech, Normal strength at 5/5 x4 extr, Normal tone, Normal affect Lymphatics: No axilla or inguinal lymphadenopathy - Studies Laboratory Data (last 24 hrs) 04/07/21 06:20: Lipase 215 04/07/21 06:20: PT 11.6, INR 1.01 04/07/21 06:20: WBC 6.00, Hgb 13.8, Hct 40.4, Plt Count 136 L 04/07/21 06:20: Sodium 138, Potassium 3.8, BUN 22 H, Creatinine 1.26, Glucose 99, Magnesium 2.2, Total Bilirubin 0.6, AST 12 L, ALT 18, Alkaline Phosphatase 79 Assessment and Plan - Problems (Diagnosis) (1) Epigastric pain Current Visit: Yes Status: Acute Plan: PAIN CHARACTER IS OF GI ORIGIN. IT CAN STILL BE CARDIAC. RBBB IS OLD. RISK FACTORS ARE KNOWN VASCULAR DISEASE AND AGE. HE WILL GET SURGICAL CONSULT AND CARDIOLOGY ALSO. SONOGRAM SHOWS GALL STONES BUT RUQ IS NOT TENDER. CAN'T MAKE A CLEAR CASE FOR GB INFECTION. ORDER PANTOPRAZOLE ALSO. (2) Right bundle branch block Current Visit: Yes Status: Chronic (3) Orthostatic hypotension Current Visit: No Status: Chronic - Advance Directives Does patient have a Living Will: Yes Does patient have a Durable POA for Healthcare: Yes - Code Status/Comfort Care Code Status: Full Code Critical Care: No
--- NOTE | 2021-04-07 16:04 | CON ---
Date of Consultation: 04/07/2021 Reason For Consultation: Epigastric pain ruling out cardiac etiology. History Of Present Illness: This is a 75-year-old male with history of hypothyroidism, dyslipidemia who was admitted with epigastric pain that was constant to a point that he could not sleep, sharp, no radiation. No nausea. Denies having any chest pain. He follows with Dr. Dominguez in the clinic and he had a stress test more than a year ago that came out normal. Past Medical History: As outlined above in the HPI. Medications: Refer to reconciliation sheet for detailed list. Allergies: NO KNOWN DRUG ALLERGIES. Family History: No premature coronary artery disease or cancer. Social History: Does not smoke or drink. Does not use any drugs. Review of Systems: All systems reviewed and they were negative except for mentioned in the HPI. Physical Examination: Vital Signs: Temperature is 98.0, pulse 75, breathing at 18, blood pressure 149/82, saturating 98% o n room air. General: Pleasant, elderly male, in no apparent distress. Head and Neck: Pupils are equal, reactive to light. Intact eye movements. No JVD. No cervical lym phadenopathy. Neck: Supple. Thyroid is not enlarged. Lungs: Clear to auscultation bilaterally. No rhonchi, rales, or crackles. No accessory muscle use. Heart: Regular rate and rhythm. No extra sounds. Abdomen: Soft, nontender. Bowel sounds positive. No organomegaly. No tenderness. No rigidity or rebound. Extremities: No edema, clubbing, or cyanosis. Intact pulses. Skin: No rash. Neurologic: Alert, awake, oriented x3. No acute focal deficits appreciated. Investigations: Creatinine 1.26. Troponin first set was 0.04 and then 0.05. Hemoglobin 13.8, white blood cell account 6000. EKG is right bundle-branch block. No acute abnormalities. Assessment And Recommendations: Epigastric pain. He has some tenderness in the right upper quadrant . This could be the cause of his pain. However, there is mild troponin leak. EKG without acute spe cific abnormalities. From the cardiac standpoint. I recommend to do 2 more sets of cardiac enzymes and further plan accordingly and also in the interim search for other causes of this epigastric pain like gallbladder disease versus peptic ulcer disease. If cardiac enzymes remain normal, then exercis e stress test and echo will be recommended, which can be done at a later time. We will follow the bruno case with you. Thank you for the consult. HARVEY Voice ID: [id number] Report ID: [id number]
[2021-04-07] MEDS: CEFOXITIN/SWI 1gm 1 GM/10 ML SYR IV SCH ×2 (17:02→23:33)
[2021-04-07 20:35] LABS: MPV 8.5 fL (7.6-11.3)
[2021-04-07] MEDS: TAMSULOSIN 0.4 MG SR CAP PO SCH (20:38)
[2021-04-07 20:44] LABS: Platelet Estimate ADEQ
[2021-04-07] MEDS ORDERED: HOME MED 1 EA UNK (Simvastatin [Simvastatin] 20 MG Tablet) PO SCH (21:00)
[2021-04-07] MEDS ORDERED: ATORVASTATIN 10 MG TAB PO SCH (21:00)
[2021-04-08 01:41] VITALS: BP 148/73; TEMP 98.5
[2021-04-08] MEDS: CEFOXITIN/SWI 1gm 1 GM/10 ML SYR IV SCH ×2 (05:26→11:51)
[2021-04-08 06:10] LABS: Absolute Lymphocytes (CBC) 0.8 K/uL (0.7-4.9); Basophils % 0.7 % (0-1.3); Hematocrit 39.1 % (39.6-49.0); Lymphocytes % 15.5 % (15.3-44.8); MPV 8.3 fL (7.6-11.3); RBC Red Blood Cell Count 4.48 M/uL (4.33-5.43)
[2021-04-08 06:23] LABS: Potassium 4.3 mmol/L (3.5-5.1)
--- NOTE | 2021-04-08 08:46 | P.PN ---
Subjective Date of Service: 04/08/21 Chief Complaint: EPIG PAIN. Subjective: Improving (tolerating clears well, no pain, no acute events) Physical Examination - Vital Signs Temperature: 98.5 F Blood Pressure: 148/73 Pulse: 87 Respirations: 19 Pulse Ox (%): 95 - Physical Exam General: Alert, In no apparent distress, Cooperative Respiratory: Clear to auscultation bilaterally Cardiovascular: Regular rate/rhythm Gastrointestinal: Soft and benign, Non-distended, No ascites, No tenderness, No masses, No rebound, No guarding Assessment And Plan - Current Problems (Diagnosis) (1) Abdominal pain Current Visit: Yes Status: Acute Plan: - Advance diet to gallbladder diet (handout provided) - ok to [place] home from surgical standpoint, can follow up with me as outpatient - continue management per Dr. Chase
[2021-04-08] MEDS ORDERED: MULTIVITAMIN TAB PO SCH (09:00)
[2021-04-08] MEDS ORDERED: FOLIC ACID 1 MG TABLET PO SCH (09:00)
[2021-04-08] MEDS ORDERED: PANTOPRAZOLE 40 MG INJ IVP SCH (09:00)
[2021-04-08] MEDS ORDERED: HOME MED 1 EA UNK (Multivitamin [Multivitamin] Tablet) PO SCH (09:00)
[2021-04-08] MEDS ORDERED: ENOXAPARIN 40 MG/0.4 ML SQ SCH (09:00)
[2021-04-08] MEDS ORDERED: LEVOTHYROXINE SOD 0.025 MG TAB PO SCH (09:00)
[2021-04-08] MEDS ORDERED: FINASTERIDE 5 MG TAB PO SCH (09:00)
[2021-04-08] MEDS: TAMSULOSIN 0.4 MG SR CAP PO SCH (09:14)
[2021-04-08 09:22] VITALS: O2SAT 95
--- NOTE | 2021-04-08 10:29 | CON ---
Date of Consultation: 04/06/2021 Brief History Of Present Illness: The patient is a 75-year-old male, who presents to the [facility] with complaints of epigastric abdominal pain beginning at approximately 1 a.m. after eating a hamburger earlier in the day. He is uncertain if this has ever happened before, but he feels that p erhaps in the past week or 2, he may have had a somewhat similar episode of similar character, but mu ch less intensity. Since being brought to the hospital, his pain is significantly improved. It was primarily in the subxiphoid epigastric area. He had some nausea. No vomiting. No change in his bow el or bladder habits. He states he has constipation at baseline. No other changes. His abdominal p ain is significantly improved since being brought to the emergency room. He no longer has nausea, soni s not had any episodes of emesis. He did not feel that there was any meal relation by his assessment . Past Medical History: Significant for hypothyroidism, ischemic stroke, polio, viral encephalitis. Past Surgical History: He has had an appendectomy. Allergies: NO KNOWN DRUG ALLERGIES. Home Medications: Include Plavix, simvastatin, folic acid, , finasteride, levothyroxine. Social History: He denied past tobacco usage, but has a positive past heavy alcohol usage; however, he has been without drinking since September of this year. He denies any recreational drug use. Physical Examination: Vital Signs: At the time of my examination; his blood pressure 172/83, pulse 65, respiratory rate 16 , temperature 97.0, pulse ox 98% on room air. General: He is awake, alert, and oriented. He is in no apparent distress. Psychiatric: He is appropriate, conversive. HEENT: He is normocephalic. Sclerae anicteric. Mucous membranes are moist. Oropharynx is clear. Neck: Supple without JVD. Chest: Normal expansion and excursion. Cardiovascular: Regular rate and rhythm. Pulmonary: Clear to auscultation bilaterally. Abdomen: Soft, nontender, nondistended. No rebound. No guarding. No focal peritonitis. Negative Denney sign. Pelvis: Stable. Extremities: No clubbing, cyanosis, or edema. Skin: Warm and dry. Laboratory Data: Revealed a white blood cell count of 6.0, hemoglobin 13.8, hematocrit 40.4, platele t count was 136. His neutrophils are normal at 71%. PT 11.6, INR 1.01. Chemistry showed a sodium 1 38, potassium 3.8, chloride 105, carbon dioxide 27, BUN 22, creatinine 1.26, glucose is 99. His magn esium was 2.2, calcium 9.4, AST 12, ALT 18, alkaline phosphatase 79. His troponin was less than 0.03 , 0.04, and 0.05 on subsequent check. ProBNP is 2724. His lipase is 215. Total bilirubin 0.6, dire ct component was 0.2. His COVID was negative. He had imaging performed, which included an abdominal ultrasound, officially read as cholelithiasis. No gallbladder wall thickening is identified. No pe richolecystic fluid. No ductal dilatation. No findings to suggest acute cholecystitis. He had a ch est x-ray performed as well, which was officially read as low lung volumes likely with bibasilar atel ectasis. Assessment And Plan: This is a 75-year-old male, who comes in with abdominal pain of uncertain etiol ogy. 1.IV fluid hydration. 2.Okay to start p.o. diet as the patient is asymptomatic essentially at this point. 3.I will give the patient gallbladder diet recommendations and have him follow up with me as an outp atient when he is medically optimized and cleared from Dr. Chase's standpoint. Continue management per Dr. Chase. Thank you for this interesting consult. ELEAZAR/ATIF Voice ID: [id number] Report ID: [id number]
--- NOTE | 2021-04-08 11:48 | P.DS ---
Admission Date: 04/07/21 Discharge Date: 04/08/21 Disposition: ROUTINE DISCHARGE Discharge Condition: GOOD Reason for Admission: EPIG PAIN. - Problems (1) Epigastric pain Current Visit: Yes Status: Acute (2) Right bundle branch block Current Visit: Yes Status: Chronic (3) Orthostatic hypotension Current Visit: No Status: Chronic Brief History of Present Illness: MR. FRENCH HAS HAD EPIG PAIN OFF AND ON FOR A FEW WEEKS. FOR LAST DAY IT IS CONSTANT AND HE COULD NOT SLEEP. IT WAS MODERATE IN SEVERITY. IT IS A SHARP PAIN, NO RADIATION, NO NAUSEA, NO DIAPHORESIS, NO VOMITING AND IT IS CONSTANT. Hospital Course: MR. FRENCH IS ASYMPTOMATIC. HE IS GIVEN PANTOPRAZOLE. CONFIRMS HE DOES GET GERD. HE WILL WATCH DIET, AVOID FAT IN DIET. FU IN OFFICE IN TWO WEEKS. Vital Signs/Physical Exam: Temp Pulse Resp BP Pulse Ox 98.5 F 87 19 148/73 H 95 04/08/21 08:45 04/08/21 08:45 04/08/21 08:45 04/08/21 08:45 04/08/21 08:45 Laboratory Data at Discharge: WBC 5.40 K/uL (4.3-10.9) 04/08/21 05:52 Hgb 13.3 g/dL (13.6-17.9) L 04/08/21 05:52 Hct 39.1 % (39.6-49.0) L 04/08/21 05:52 Plt Count 118 K/uL (152-406) L 04/08/21 05:52 PT 11.6 SECONDS (9.5-12.5) 04/07/21 06:20 INR 1.01 04/07/21 06:20 Sodium 137 mmol/L (136-145) 04/08/21 05:52 Potassium 4.3 mmol/L (3.5-5.1) 04/08/21 05:52 BUN 16 mg/dL (7-18) 04/08/21 05:52 Creatinine 1.40 mg/dL (0.55-1.3) H 04/08/21 05:52 Glucose 101 mg/dL (74-106) 04/08/21 05:52 Magnesium 2.2 mg/dL (1.8-2.4) 04/07/21 06:20 Total Bilirubin 0.6 mg/dL (0.2-1.0) 04/07/21 06:20 AST 12 U/L (15-37) L 04/07/21 06:20 ALT 18 U/L (12-78) 04/07/21 06:20 Alkaline Phosphatase 79 U/L (45-117) 04/07/21 06:20 Troponin I 0.03 ng/mL (0.0-0.045) 04/08/21 05:52 Lipase 215 U/L (73-393) 04/07/21 06:20 Home Medications: Clopidogrel Bisulfate [Plavix*] 1 tab PO DAILY 09/27/20 Finasteride 5 mg PO DAILY 09/27/20 Folic Acid 1 tab PO DAILY 09/27/20 Levothyroxine Sodium 1 tab PO DAILY 09/27/20 Multivitamin 1 tab PO DAILY 09/27/20 Simvastatin 20 mg PO BEDTIME 09/27/20 Tamsulosin [Flomax*] 1 tab PO BID 09/27/20 Acetaminophen [Tylenol*] 650 mg PO Q6H PRN tab 09/28/20 Cefuroxime [Ceftin] 250 mg PO BID #10 tab 04/08/21 Pantoprazole [Protonix Tab*] 40 mg PO DAILY #90 tab 04/08/21 New Medications: Cefuroxime [Ceftin] 250 mg PO BID #10 tab Pantoprazole [Protonix Tab*] 40 mg PO DAILY #90 tab Diet: [place] Activity: Ad phil Followup: Ministerio Chase MD [Primary Care Provider] - Jose Daniel Robin MD [ACTIVE - CAN ADMIT] -
== END 2021-04-08 11:51 | disposition home or self-care (01) ==
LOC: ER 05:49 → ERHOLD 08:56 → 2ND 14:19
PROVIDERS: ADMIT Internal Medicine; ATTEND Internal Medicine
DX: R10.13 Epigastric pain (principal); I45.10 Unspecified right bundle-branch block; I95.1 Orthostatic hypotension; K80.20 Calculus of gallbladder without cholecystitis without obstruction; E03.9 Hypothyroidism, unspecified; E78.5 Hyperlipidemia, unspecified; Z20.822 Contact with and (suspected) exposure to COVID-19; Z79.02 Long term (current) use of antithrombotics/antiplatelets; Z87.891 Personal history of nicotine dependence; Z86.12 Personal history of poliomyelitis; Z86.61 Personal history of infections of the central nervous system; Z86.73 Personal history of transient ischemic attack (TIA), and cerebral infarction without residual deficits; Z82.49 Family history of ischemic heart disease and other diseases of the circulatory system
CPT/HCPCS: 85025 ×2; 80048 ×2; 36415; 83735; 85049; 85610; 82947; 80076; 84484 ×4; 82553; 83690; 83880; 71045; 76705; 96375; 96374; 99284; U0003; C9113; J2405; G0378 ×3; J1650

== ENCOUNTER 2021-04-08 14:10 | Emergency (ER) | payer OTHER ==
--- NOTE | 2021-04-08 17:18 | RAD REPORT ---
EXAM DESCRIPTION: US - Abdomen Exam Limited - 04/08/2021 4:28 pm CLINICAL HISTORY: ABD PAIN COMPARISON: Abdomen Exam Limited dated 04/07/2021 FINDINGS: The gallbladder demonstrates shadowing gallstones. No pericholecystic fluid or gallbladder wall thickening. The common bile duct is mildly prominent measuring 6 mm. The liver demonstrates no findings of intrahepatic biliary dilatation. IMPRESSION: Cholelithiasis.
--- NOTE | 2021-04-08 17:39 | ER ---
Nurse's Notes [facility] Name: Luis Joyner Age: 75 yrs Sex: Male : 1945 Arrival Date: 04/08/2021 Time: 14:13 Bed Waiting Private MD: Diagnosis: Presentation: 04/08 15:14 Chief complaint: Patient states: Left at noon today from being hospitalized for 1 day ll1 for abd pain. Left on a clear liquid diet. Started having severe abd pain after getting home., No fever or N./V/D. Coronavirus screen: Client denies travel out of the [place] in the last 14 days. At this time, the client does not indicate any symptoms associated with coronavirus-19. Ebola Screen: Patient denies travel to an Ebola-affected area in the 21 days before illness onset. Initial Sepsis Screen: Does the patient meet any 2 criteria? No. Patient's initial sepsis screen is negative. Does the patient have a suspected source of infection? Yes: Acute abdominal pain. Risk Assessment: Do you want to hurt yourself or someone else? Patient reports no desire to harm self or others. Onset of symptoms was April 08, 2021. 15:14 Method Of Arrival: Wheelchair ll1 15:14 Acuity: KAELA 3 ll1 Historical: - Allergies: 15:16 No Known Allergies; ll1 - PMHx: 15:16 Hypothyroidism; ischemic stroke; Polio; viral encephalitis; ll1 - PSHx: 15:16 Appendectomy; ll1 - Immunization history:: Client reports having NOT received the Covid vaccine. Flu vaccine is not up to date. - Social history:: Smoking status: Patient/guardian denies using tobacco, the patient reports quitting approximately 40 years ago. Vital Signs: 15:14 BP 141 / 74; Pulse 78; Resp 17; Temp 98.8; Pulse Ox 96% on R/A; Weight 88 kg; Height 5 ll1 ft. 8 in. (172.72 cm); Pain 10/10; 15:14 Body Mass Index 29.50 (88.00 kg, 172.72 cm) ll1 ED Course: 14:13 Patient arrived in ED. ds1 15:16 Triage completed. ll1 15:17 Arm band placed on. ll1 16:28 US Abdomen Limited In Process Unspecified. EDMS Administered Medications: No medications were administered Outcome: 17:38 Patient left the ED. ll1 Signatures: Dispatcher [employer] EDLisa Flaherty ds1 Annel Goldberg, RN RN ll1
[2021-04-08 17:43] VITALS: BP 141/74; TEMP 98.8; O2SAT 96
== END 2021-04-08 17:38 | disposition left against medical advice (07) ==
LOC: ER 14:10
DX: Z53.21 Procedure and treatment not carried out due to patient leaving prior to being seen by health care provider (principal)
CPT/HCPCS: 76705; 99282

== ENCOUNTER 2021-04-27 06:53 | Day surgery (SDC) | payer OTHER ==
[2021-04-23 13:52] LABS: Absolute Lymphocytes (CBC) 1.2 K/uL (0.7-4.9); Basophils % 0.9 % (0-1.3); Hematocrit 40.9 % (39.6-49.0); Lymphocytes % 28.5 % (15.3-44.8); MPV 8.2 fL (7.6-11.3); RBC Red Blood Cell Count 4.68 M/uL (4.33-5.43)
[2021-04-23 14:03] LABS: Albumin 3.7 g/dL (3.4-5.0); Bilirubin Total 0.8 mg/dL (0.2-1.0); Potassium 4.5 mmol/L (3.5-5.1); Protein, Total 7.5 g/dL (6.4-8.2)
[2021-04-27] MEDS ORDERED: CEFOXITIN/SWI 1gm 1 GM/10 ML SYR ONE (07:35)
[2021-04-27] MEDS ORDERED: Ringers Lactate 1,000 ML IV ONE ×2 (07:35→10:18)
[2021-04-27] MEDS ORDERED: BUPIVACAINE 0.25% PF 10 ML VIAL ONE (09:00)
[2021-04-27] MEDS ORDERED: propofoL 200 MG/20 ML VIAL IV ONE (09:01)
[2021-04-27] MEDS ORDERED: FENTANYL CITR 100 MCG/2 ML ONE ×2 (09:01→10:15)
[2021-04-27] MEDS ORDERED: LIDOCAINE 1% MPF 5 ML VIAL ONE (09:01)
[2021-04-27] MEDS ORDERED: ROCURONIUM 50 MG/5 ML VIAL IV ONE (09:01)
[2021-04-27] MEDS ORDERED: EPHEDRINE SULF 50 MG/ML VIAL ONE (09:36)
[2021-04-27] MEDS ORDERED: NS 0.9% VIAL 10 ML ONE (09:36)
[2021-04-27] MEDS ORDERED: KETOROLAC 30 MG/ML INJ ONE (09:41)
[2021-04-27] MEDS ORDERED: ONDANSETRON 4 MG/2 ML VIAL ONE (09:42)
--- NOTE | 2021-04-27 10:17 | P.OP ---
Preoperative diagnosis: Chronic cholecystitis with Cholelithiasis Postoperative diagnosis: Chronic cholecystitis with Cholelithiasis Primary procedure: Laparoscopic Cholecystectomy Secondary procedure: ICG Cholangiography Anesthesia: GETA Local Estimated blood loss: <20cc Specimen: Gallbladder Findings: distended gallbladder, short cystic duct, accessory cystic artery Complications: None Implants: Slime Clot Matrix Powder Transferred to: Recovery Room Condition: Good
[2021-04-27] MEDS ORDERED: GLYCOPYRROLATE 0.2 MG/ML SYR ONE (10:27)
[2021-04-27] MEDS ORDERED: NEOSTIGMINE 1 MG/ML -5 ML ONE (10:27)
[2021-04-27 11:23] VITALS: O2SAT 99
[2021-04-27 12:21] VITALS: BP 112/50; TEMP 96.9
--- NOTE | 2021-04-27 15:11 | OP ---
Date of Procedure: 04/27/2021 Surgeon: Jose Daniel Robin MD, Preoperative Diagnosis: Chronic cholecystitis with cholelithiasis. Postoperative Diagnosis: Chronic cholecystitis with cholelithiasis. Procedure Performed: 1.Laparoscopic cholecystectomy. 2.ICG cholangiography. Anesthesia: General endotracheal plus local with 0.25% Marcaine. Estimated Blood Loss: Less than 20 cc. Specimen: Gallbladder. Findings: 1.Distended gallbladder. 2.Short cystic duct. 3.Accessory cystic artery. Complications: None. Implants: Slime clot matrix powder. Disposition: The patient was transferred recovery room in good condition. Procedure In Detail: After informed consent was obtained, the patient was brought to the operating r oom, prepped and draped in the usual sterile fashion. After adequate anesthesia was achieved, the moran praumbilical area was anesthetized with 0.25% Marcaine and sharply incised. A 5 mm 0-degree optical trocar was introduced in the abdomen without evidence of complication. Insufflation was obtained to 1 5 mmHg at this time. There was no injury to vital structures upon entry to the abdomen. At this poi nt, 2 additional trocars were placed, 1 in the epigastrium and 1 the right upper quadrant. Both of t hese had been similarly anesthetized, sharply incised. A 5 mm trocar was placed under direct visuali zation without evidence of complication. The umbilical trocar was then up-sized to a 12 mm under dir ect visualization without evidence of complication. The patient was positioned once again, head up r ight-side up position. Ratcheted grasper was used to grasp the patient's gallbladder which was found to be completely encased in omentum requiring dissection to expose the gallbladder. After the oment um was removed with an extensive adhesiolysis of the anterior surface of the gallbladder down to the Juani pouch, there was firm adhesive tissue down this area too. ICG cholangiography was performed at this point to visualize the cystic duct-cystic artery confluence. Cystic duct was found to be qu ite short. At this point, I dissected circumferentially around the cystic duct and cystic artery, id entified a branching of the cystic artery. At this point, when the anterior posterior branch were ev ident and these structures were skeletonized, I took down the lateral and medial aspects of peritoneu m to ensure no additional arterial, vessels or abnormal anatomy was appreciated. ICG cholangiography was performed for multiple times throughout the procedure and the biliary anatomy was visualized. A t this point, double titanium clips were placed on the proximal side of both the cystic duct and the anterior posterior branch of the cystic artery. I then placed a 2nd clip on the distal aspect of the cystic duct and accessory/anterior posterior branch of the cystic artery and ligated these structure s with Endo Franny. At this point, the gallbladder was removed from the hepatic fossa. There was so me oozing from the hepatic bed requiring fulguration. The gallbladder was placed in EndoCatch bag, r emoved through the umbilical trocar, sent off for pathologic examination. The abdomen was copiously irrigated multiple times. There appeared to be some oozing from the hepatic bed which required fulgu ration. At this point, because a 2nd round of fulguration was required, I opted to place some Slime after hemostasis was achieved to ensure hemostasis postoperatively. The clips were found to be in go od anatomic position and the end of the procedure. The Slime was placed at this point and the omentu m was tucked at this area. No additional bleeders were appreciated and no additional hemostatic sameer ures required. The patient was positioned back in a neutral position. The effluent was suctioned ou t. I then removed the umbilical trocar, closed the umbilical trocar site using a Garland-Napoleon sut ure passer with 0 Vicryl in running fashion with good approximation of tissues. The abdomen was comp letely desufflated under direct visualization without evidence of complication. Remaining trocars we re removed. All skin incisions were copiously irrigated and closed with 4-0 Monocryl in a running fa shion. Dermabond was placed over the top. The patient tolerated the procedure well without evidence of complication, transferred to PACU in good condition. All counts w ere correct at the end of the case. TK/MODL Voice ID: [id number] Report ID: [id number]
== END 2021-04-27 12:14 | disposition home or self-care (01) ==
LOC: OR 06:53
PROVIDERS: ATTEND Surgery
PROC: BF13YZZ Fluoroscopy of Gallbladder and Bile Ducts using Other Contrast (ICD-10-PCS; 2021-04-27)
PROC: 0FT44ZZ Resection of Gallbladder, Percutaneous Endoscopic Approach (ICD-10-PCS; principal; 2021-04-27 08:30)
DX: K80.10 Calculus of gallbladder with chronic cholecystitis without obstruction (principal); Z20.822 Contact with and (suspected) exposure to COVID-19
CPT/HCPCS: 85025; 36415; 88304; 80053; 47563; U0003; J2704; J3010 ×2; J2710; J7120 ×2; J2405

== ENCOUNTER 2021-11-19 08:00 | Day surgery (SDC) | payer OTHER ==
[2021-11-16 15:28] LABS: Potassium 4.2 mmol/L (3.5-5.1)
[2021-11-16 15:35] LABS: Absolute Lymphocytes (CBC) 0.9 K/uL (0.7-4.9); Hematocrit 40.8 % (39.6-49.0); Lymphocytes % 27.8 % (15.3-44.8); MPV 8.9 fL (7.6-11.3); RBC Red Blood Cell Count 4.59 M/uL (4.33-5.43)
[2021-11-16 15:37] LABS: Protime INR 1.08
--- NOTE | 2021-11-16 15:43 | RAD REPORT ---
EXAM DESCRIPTION: RAD[place] Pa And Lat (2 Views)11/16/2021 3:05 pm CLINICAL HISTORY: Preop cardiac catheterization. Hypertension COMPARISON: 2020 FINDINGS: Mild bilateral pulmonary opacities. Heart is mildly enlarged. Small pleural effusions IMPRESSION: These findings probably indicate mild CHF
[~2021-11-19 08:00] MED LIST: NITROGLYCERIN 100 MCG/ML SYR (for cath lab use only) IV ONE; NITROGLYCERIN/D5W 25 MG/250 ML BTL IV ONE
[2021-11-19] MEDS ORDERED: NA CHLORIDE 0.9% 500 ML ONE (08:31)
[2021-11-19] MEDS ORDERED: FENTANYL CITR 100 MCG/2 ML ONE (09:38)
[2021-11-19] MEDS ORDERED: NA CHLORIDE 0.9% 0 ML ONE (09:39)
[2021-11-19] MEDS ORDERED: ATROPINE SULF 1 MG/10 ML SYR IV ONE (09:39)
[2021-11-19] MEDS ORDERED: MIDAZOLAM HCL 2 MG/2 ML INJ ONE (09:39)
[2021-11-19] MEDS ORDERED: LIDOCAINE 1% 20 ML MDV ONE (09:44)
[2021-11-19] MEDS ORDERED: HEPA 1000U/500MLS 2,000 UNIT/1,000 ML BAG IV ONE (09:50)
[2021-11-19 12:27] VITALS: O2SAT 98
[2021-11-19 14:51] VITALS: BP 136/83
--- NOTE | 2021-11-19 21:27 | OP ---
Date of Procedure: 11/19/2021 Surgeon: Pelon Dominguez MD Bucket Turner: Ms. Ritesh Montoya. Procedure: He underwent left heart catheterization selective coronary arteriogram and LV-gram. Indications: Mr. 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 A 6-Divehi sheath introduced in the right common femoral artery successfully u sing the Seldinger technique. 10 cc of xylocaine, hand pressure was held for hemostasis. Blade ca theter left and right were used to do the coronary angiography. His RCA was completely occluded prox imally with collaterals from the circ and LAD distally. He had diffuse PDA and posterolateral diseas e off the right. He was obviously right dominant. On the left side, the left main was normal. Ther e was a 70% OM 1 stenosis and 90% mid-LAD stenosis, not a percent proximal diagonal stenosis. LV-gra m was done, showed anteroapical akinesis with an ejection fraction of 40%. Left ventricular end-castillo tolic pressure was 60 mmHg. There were no complications. Patient tolerated the procedure well. Blood Loss: 5 mL. Postoperative Diagnosis: Severe coronary artery disease. I will review the films with CV surgery and with Dr. Castillo and see whether we will send him for a hi risk stent versus CABG. Continue present regimen for now. Anesthesia: Total conscious sedation was 45 minutes. BEST/ATIF Voice ID: [id number] Report ID: [id number]
== END 2021-11-19 16:05 | disposition home or self-care (01) ==
LOC: CCL 08:00
DX: I25.10 Atherosclerotic heart disease of native coronary artery without angina pectoris (principal); I25.82 Chronic total occlusion of coronary artery; I65.23 Occlusion and stenosis of bilateral carotid arteries; I10 Essential (primary) hypertension; E78.2 Mixed hyperlipidemia; E03.9 Hypothyroidism, unspecified; N40.0 Benign prostatic hyperplasia without lower urinary tract symptoms; Z87.891 Personal history of nicotine dependence; Z20.822 Contact with and (suspected) exposure to COVID-19
CPT/HCPCS: 85025; 80048; 36415; 85610; 85730; 71046; 93458; U0003; C1893; J2250; J3010; J7040; J1644; J0583

== ENCOUNTER 2022-05-16 11:05 | Day surgery (SDC) | payer OTHER ==
[2022-05-14 13:52] LABS: Absolute Lymphocytes (CBC) 1.1 K/uL (0.7-4.9); Hematocrit 35.3 % (39.6-49.0); Lymphocytes % 24.9 % (15.3-44.8); MCV 86.6 fL (80-100); MPV 7.8 fL (7.6-11.3); RBC Red Blood Cell Count 4.08 M/uL (4.33-5.43)
--- NOTE | 2022-05-14 13:59 | RAD REPORT ---
EXAM DESCRIPTION: RAD - Chest Pa And Lat (2 Views) - 05/14/2022 1:42 pm CLINICAL HISTORY: Pre op pending heart stents COMPARISON: Chest Pa And Lat (2 Views) dated 11/16/2021; Chest Single View dated 04/07/2021; Chest Sin gle View dated 09/28/2020; Chest Single View dated 09/27/2020 FINDINGS: Lines: None. Lungs: No evidence of edema or pneumonia. Pleural: No significant pleural effusions or pneumothorax. Cardiac: Cardiomegaly. Mediastinum: Within normal limits. Bones: No acute fractures. Other: None IMPRESSION: No acute cardiopulmonary disease.
[2022-05-14 14:12] LABS: Protime INR 1.03
[2022-05-14 14:13] LABS: Potassium 4.2 mmol/L (3.5-5.1)
[2022-05-14 14:18] LABS: SARS-CoV-2 Antigen Rapid Res Negative (Negative)
--- NOTE | 2022-05-15 12:49 | EKG ---
Test Date: 2022-05-14 Test Time: 13:33:45 [place] Kura [place] Ma[place]: DYLON MEASUREMENT RESULTS: Intervals: Rate: 56 VT: 168 QRSD: 134 QT: 498 QTc: 480 [place]: P: 16 VT: 168 QRS: -9 T: 2 INTERPRETIVE STATEMENTS: Sinus bradycardia with occasional premature ventricular complexes Right bundle branch block Inferior infarct, age undetermined Abnormal ECG Compared to ECG 04/07/2021 06:05:51 Ventricular premature complex(es) now present Sinus rhythm no longer present T-wave abnormality no longer present Possible ischemia no longer present Myocardial infarct finding still present Electronically Signed On 05-15-22 12:48:55 CDT by Bryce Castillo
[~2022-05-16 11:05] MED LIST changes: +ATROPINE SULF 1 MG/10 ML SYR IV ONE; +FENTANYL CITR 100 MCG/2 ML ONE; +HEPA 1000U/500MLS 2,000 UNIT/1,000 ML BAG IV ONE; +HEPARIN 10,000 UNIT/10 ML VIAL IV ONE; +HEPARIN 5000 UNIT/ML 1 ML VIAL ONE; +LIDOCAINE 1% 20 ML MDV ONE; +MIDAZOLAM HCL 2 MG/2 ML INJ ONE; +NA CHLORIDE 0.9% 500 ML ONE; -NITROGLYCERIN 100 MCG/ML SYR (for cath lab use only) IV ONE; -NITROGLYCERIN/D5W 25 MG/250 ML BTL IV ONE; +VERAPAMIL HCL 10 MG/4 ML VIAL IV ONE
[2022-05-16 11:24] VITALS: TEMP 97.8
[2022-05-16 17:03] VITALS: BP 128/62; O2SAT 100
--- NOTE | 2022-05-17 00:33 | OP ---
Date of Procedure: 05/16/2022 Surgeon: RAMSEY RENEE Procedures Performed: 1.Selective coronary angiogram. 2.Left heart catheterization. 3.PCI of severe OM1 stenosis, used a 2.5 x 38 mm Synergy drug-eluting stent. Indication: Angina symptoms with known significant coronary artery disease. Access: Right radial artery 6-Egyptian closed with TR band. Complications: None. Estimated Blood Loss: Bleeding less than 50 mL. Anesthesia: Total sedation time was 15 minutes, used fentanyl and Versed. Description Of Procedure: After risks, benefits, and alternatives were explained, the patient agreed to proceed and signed informed consent. The patient was brought into cardiac catheterization [facility] and prepped and draped in sterile fashion. Then we accessed the right radial artery using pedia tric micropuncture kit, placed 6-Egyptian Slender sheath and took a 5-Egyptian Bath 4 catheter and engag ed left main and right coronary artery and took standard views and then gave systemic heparin to assu re ACT level above 250 and took a EBU 3.5 guide into the aortic root, engaged left main and send Runt hrough wire into the left main, then left circumflex and then the OM1 branch and the lesion was pre-d ilated and placed a 2.5 x 38 mm stent. I had to use a GuideLiner to help deliver the stent with exce llent results and there was residual of about 40%-50% stenosis in mid left circumflex, which might ne ed to be evaluated in the near future. Then, I removed the wire and the guide and the sheath and komal sahara TR band with good hemostasis. Findings: 1.Left main: Large, normal. 2.LAD: Large vessel with proximal to mid patent stent. The diagonal 1 branch has mid 90% stenosis. 3.Left circumflex is of moderate size with mid 50% stenosis. OM1 branch has diffuse 90% stenosis an d is status post successful PCI as above. 4.RCA has proximal TIRE BUILDER OPERATOR with good collaterals from the left. 5.LVEDP is 9 mmHg. The catheter was pushed over the wire into the LV. Measured LVEDP and pullback not recording any gradient. Conclusion: Severe coronary artery disease involving OM1 and diagonal 1 branch, with patent proximal LAD stent status post successful PCI of the OM1 branch. It was rather a difficult intervention due to anatomy and used about 120 cc of contrast. Plan: Staged PCI of diagonal 1 branch and continue Brilinta and aspirin and statin and follow up wit h me in the office in 1 week. SR/ATIF Voice ID: [id number] Report ID: [id number]
== END 2022-05-16 17:50 | disposition home or self-care (01) ==
LOC: CCL 11:05
PROVIDERS: ATTEND Internal Medicine
DX: I25.110 Atherosclerotic heart disease of native coronary artery with unstable angina pectoris (principal); I25.82 Chronic total occlusion of coronary artery; I10 Essential (primary) hypertension; E78.5 Hyperlipidemia, unspecified; Z95.5 Presence of coronary angioplasty implant and graft; Z20.822 Contact with and (suspected) exposure to COVID-19
CPT/HCPCS: 93005; 85025; 80048; 36415; 85610; 85347 ×3; 85730; 71046; 93458; 76937; 87811; C1893; Q9967; C1725; C9600; J1644 ×2; J2250; J3010; J7040

== ENCOUNTER 2023-06-27 07:00 | Day surgery (SDC) | payer OTHER ==
--- NOTE | 2023-06-25 14:28 | RAD REPORT ---
EXAM DESCRIPTION: RAD - Chest Pa And Lat (2 Views) - 06/25/2023 1:37 pm CLINICAL HISTORY: Pre op pending heart catheterization. Hypertension COMPARISON: Chest Pa And Lat (2 Views) dated 05/14/2022; Chest Pa And Lat (2 Views) dated 11/16/2021; C hest Single View dated 04/07/2021; Chest Single View dated 09/28/2020 TECHNIQUE: PA and lateral views of the chest were obtained. FINDINGS: The lungs are clear. Left basilar atelectasis, stable. Heart size is normal and central va sculature is within normal limits. No pleural effusion or pneumothorax seen. No acute bony finding no ti. IMPRESSION: No acute cardiopulmonary process.
[2023-06-25 14:43] LABS: Absolute Lymphocytes (CBC) 1.3 K/uL (0.7-4.9); Hematocrit 30.9 % (39.6-49.0); Lymphocytes % 29.8 % (15.3-44.8); MPV 8.1 fL (7.6-11.3); Platelets 133 thou/uL (152-406); RBC Red Blood Cell Count 3.26 M/uL (4.33-5.43)
[2023-06-25 14:59] LABS: Potassium 4.4 mEq/L (3.5-5.1)
--- NOTE | 2023-06-26 13:39 | EKG ---
Test Date: 2023-06-25 Test Time: 13:21:32 Aeronautics Teacher: SHARDA MEASUREMENT RESULTS: Intervals: Rate: 52 GA: 192 QRSD: 140 QT: 458 QTc: 425 [place]: P: 56 GA: 192 QRS: 25 T: 37 INTERPRETIVE STATEMENTS: Sinus bradycardia Right bundle branch block Abnormal ECG Compared to ECG 05/14/2022 13:33:45 Ventricular premature complex(es) no longer present Myocardial infarct finding no longer present Electronically Signed On 06-26-23 13:37:00 CDT by Bryce Castillo
[2023-06-27] MEDS ORDERED: NA CHLORIDE 0.9% 500 ML ONE (07:28)
[2023-06-27] MEDS ORDERED: HEPA 1000U/500MLS 2,000 UNIT/1,000 ML BAG IV ONE (07:49)
[2023-06-27] MEDS ORDERED: LIDOCAINE 1% 20 ML MDV ONE (07:49)
[2023-06-27] MEDS ORDERED: FENTANYL CITR 100 MCG/2 ML ONE (07:53)
[2023-06-27] MEDS ORDERED: HEPARIN 5000 UNIT/ML 1 ML VIAL ONE (07:53)
[2023-06-27] MEDS ORDERED: ASPIRIN 325 MG TAB ONE (07:53)
[2023-06-27] MEDS ORDERED: VERAPAMIL HCL 10 MG/4 ML VIAL IV ONE (07:53)
[2023-06-27] MEDS ORDERED: MIDAZOLAM HCL 2 MG/2 ML INJ ONE (07:53)
[2023-06-27] MEDS ORDERED: CLOPIDOGREL 75 MG TABLET ONE (07:53)
[2023-06-27] MEDS ORDERED: HEPARIN 10,000 UNIT/10 ML VIAL IV ONE (07:54)
[2023-06-27] MEDS ORDERED: TICAGRELOR 90 MG TABLET PO ONE (07:54)
[2023-06-27] MEDS ORDERED: ATROPINE SULF 1 MG/10 ML SYR IV ONE (07:54)
--- NOTE | 2023-06-27 09:54 | OP ---
Date of Procedure: 06/27/2023 Surgeon: RAMSEY RENEE Procedures Performed: 1.Selective coronary angiogram. 2.Left heart catheterization. Indication: Abnormal stress test with chest pain. Access: Right femoral artery 6-Argentine, closed with 6-Argentine Angio-Seal. Complications: None. Bleeding: Less than 20 mL. Description Of Procedure: After risks, benefits, and symptoms were explained, patient agreed to proc edure and signed informal consent. Patient was brought into the cardiac catheterization laboratory, prepped and draped in usual sterile fashion. I accessed right femoral artery using the micropuncture kit, ultrasound guidance and fluoroscopy and placed a 6-Argentine [place] sheath, took 6-Argentine JL4 ca theter into the aortic root, engaged the left main and took standard views and then exchanged for a 6 -Argentine JR4 catheter. Engaged the RCA, took standard views, and then the catheter was pushed over th e wire into the LV, measured LVEDP. Pullback did not record any gradient. We then removed the reddy ter and sheath, placed 6-Argentine Angio-Seal for closure. Good hemostasis. Findings: 1.The left main is large and normal. 2.LAD; proximal segment appears to be free of disease. Mid segment has a patent stent. There is a diagonal branch that has a stent, but it is 90% stenosed and the vessel is less than 2 mm in size and very short. The rest of the LAD appears to be normal and gives collaterals to the occluded RCA. 3.Left circumflex. It is a large size and a codominant. OM is large and after the takeoff of the O M, there is a focal 50 to 60% stenosis. 4.RCA. BLOCKING MACHINE TENDER proximally and there is a stent in the proximal segment that has significant stenosis al so about 80% and then becomes BLOCKING MACHINE TENDER and gets collateralized from the LAD. 5.LVEDP borderline at 30 mmHg. Conclusion: 1.Totally occluded proximal RCA with good collaterals from the left. 2.Moderate coronary artery disease elsewhere. 3.Borderline LVEDP. Plan: Medical management. SR/MODL Voice ID: [id number] Report ID: [id number]
[2023-06-27 10:22] VITALS: BP 130/66; O2SAT 99
== END 2023-06-27 10:24 | disposition home or self-care (01) ==
LOC: CCL 07:00
PROVIDERS: ATTEND Internal Medicine
DX: I25.10 Atherosclerotic heart disease of native coronary artery without angina pectoris (principal); I25.82 Chronic total occlusion of coronary artery; I65.29 Occlusion and stenosis of unspecified carotid artery; I73.9 Peripheral vascular disease, unspecified; I10 Essential (primary) hypertension; E78.5 Hyperlipidemia, unspecified; Z95.5 Presence of coronary angioplasty implant and graft; Z87.891 Personal history of nicotine dependence; Z79.82 Long term (current) use of aspirin; Z79.899 Other long term (current) drug therapy
CPT/HCPCS: 93005; 85025; 80048; 36415; 83721; 85610; 85730; 71046; 93458; 76937; C1893; Q9966; J1644; J2001; J2250; J3010; J7040; J0461

== ENCOUNTER 2024-06-15 13:00 | Day surgery (SDC) | payer OTHER ==
[2024-06-10 14:27] LABS: Absolute Eosinophils 0.1 K/uL (0-0.5); Absolute Lymphocytes (CBC) 1.2 K/uL (0.7-4.9); Absolute Monocytes 0.5 K/uL (0.1-1.3); Absolute Neutrophil 3.3 K/uL (1.8-8.0); Basophils % 0.7 % (0-1.3); Eosinophils % 1.7 % (0-4.4); Hemoglobin 10.6 g/dL (13.6-17.9); Lymphocytes % 23.7 % (15.3-44.8); MCH 32.2 pg (27.0-35.0); MCV 97.4 fL (80-100); MPV 7.8 fL (7.6-11.3); Monocytes % 10.4 % (3.3-12.3); Neutrophils % 63.5 % (41.7-73.7); Platelets 147 thou/uL (152-406); RBC Red Blood Cell Count 3.29 M/uL (4.33-5.43); Red Cell Distribution Width 13.7 % (12.1-15.2)
[2024-06-10 14:29] LABS: PT Prothrombin Time 11.1 SECONDS (9.4-12.5); Protime INR 0.99
[2024-06-10 14:30] LABS: PTT, Activated Partial Thromb 28.8 SECONDS (24.3-36.9)
[2024-06-10 14:33] LABS: Anion Gap 10.8 mEq/L (5.0-15.0); Potassium 4.8 mEq/L (3.5-5.1)
--- NOTE | 2024-06-10 14:57 | RAD REPORT ---
EXAMINATION: TWO VIEW CHEST XR CLINICAL INDICATION: PRE OP TECHNIQUE: 2 views of the chest was performed. COMPARISON: 06/25/2023 FINDINGS: The lungs are hyperexpanded suggesting COPD. The heart is upper limit of normal in size. No displaced fractures evident. IMPRESSION: COPD is suspected without acute finding identified.
--- NOTE | 2024-06-11 16:36 | EKG ---
Test Date: 2024-06-10 Test Time: 14:10:39 Assembler Clip [employer] Sunglasses: MARINO MEASUREMENT RESULTS: Intervals: Rate: 56 TX: 188 QRSD: 138 QT: 446 QTc: 430 [place]: P: 33 TX: 188 QRS: 6 T: 29 INTERPRETIVE STATEMENTS: Sinus bradycardia Possible Left atrial enlargement Right bundle branch block Septal infarct, age undetermined T wave abnormality, consider lateral ischemia Abnormal ECG Compared to ECG 06/25/2023 13:21:32 Myocardial infarct finding now present T-wave abnormality now present Possible ischemia now present Electronically Signed On 06-11-24 16:32:21 CDT by Bryce Castillo
[2024-06-15] MEDS ORDERED: NA CHLORIDE 0.9% 500 ML ONE (13:25)
[2024-06-15] MEDS ORDERED: FENTANYL CITR 100 MCG/2 ML ONE (14:17)
[2024-06-15] MEDS ORDERED: MIDAZOLAM HCL 2 MG/2 ML INJ ONE (14:18)
[2024-06-15] MEDS ORDERED: LIDOCAINE 1% 20 ML MDV ONE (14:23)
[2024-06-15] MEDS ORDERED: ATROPINE SULF 1 MG/10 ML SYR IV ONE (14:23)
[2024-06-15] MEDS ORDERED: HEPA 1000U/500MLS 2,000 UNIT/1,000 ML BAG IV ONE (14:23)
[2024-06-15] MEDS ORDERED: HEPARIN 10,000 UNIT/10 ML VIAL IV ONE (14:23)
[2024-06-15] MEDS ORDERED: TICAGRELOR 90 MG TABLET PO ONE (14:24)
[2024-06-15] MEDS ORDERED: HEPARIN 5000 UNIT/ML 1 ML VIAL ONE (14:24)
[2024-06-15] MEDS ORDERED: CLOPIDOGREL 75 MG TABLET ONE (14:24)
[2024-06-15] MEDS ORDERED: ASPIRIN 81 MG CHEWABLE TABLET ONE (14:24)
[2024-06-15] MEDS ORDERED: VERAPAMIL HCL 10 MG/4 ML VIAL IV ONE (15:33)
[2024-06-15 18:57] VITALS: BP 131/52; O2SAT 100
--- NOTE | 2024-06-18 03:51 | OP ---
Date of Procedure: 06/15/2024 Surgeon: RAMSEY RENEE Procedure Performed: 1.Selective coronary angiogram. 2.Left heart catheterization. Indication: Chest pain with abnormal stress test. Access: Right radial artery 6-Panamanian closed with TR band. Complications: None. Bleeding: Less than 50 mL. Anesthesia: Total sedation time was 45 minutes. Used fentanyl, Versed. Description Of Procedure: After risks, benefits, and alternatives were explained, the patient agreed to procedure and signed informed consent. The patient was brought into cardiac catheterization [facility], prepped and draped in usual sterile fashion. Then, I accessed right radial artery using pedi atric micropuncture kit, placed 6-Panamanian slender sheath and took 5-[place]ian [place] 4 catheter into aorti c root, crossed the aortic valve over the J-wire, measured LVEDP. Pullback did not record any signif icant gradient. Then, engaged left main, took standard views, and then the RCA, took standard views, and then removed the catheter and the sheath, placed TR band with good hemostasis. Findings: 1.Left main is normal. 2.LAD: Proximal segment is normal, and in the mid segment, there is focal 30% stenosis. Rest of LA D is normal. Normal diagonal branches. 3.Left circumflex: Moderate-sized vessel. Proximal segment is normal. OM branch has mid 50% steno sis, and the rest of the left circumflex is with luminal irregularities. 4.RCA: Proximal 80% and then 99%, and then it becomes EXTRACT OPERATOR 100% with collaterals from the LAD. Conclusion: 1.Severe coronary artery disease involving the right coronary artery with 100% occlusion, EXTRACT OPERATOR, with collaterals from the LAD. 2.[id number] coronary artery disease otherwise. Recommendation: Medical management. If it fails, then recommend attempt of PCI of the EXTRACT OPERATOR of the RC A. /LIBBYL Voice ID: [id number] Report ID: [id number]
== END 2024-06-15 18:56 | disposition home or self-care (01) ==
LOC: CCL 13:00
PROVIDERS: ATTEND Internal Medicine
DX: I25.10 Atherosclerotic heart disease of native coronary artery without angina pectoris (principal); I25.82 Chronic total occlusion of coronary artery; I11.0 Hypertensive heart disease with heart failure; I50.21 Acute systolic (congestive) heart failure; I65.03 Occlusion and stenosis of bilateral vertebral arteries; I65.29 Occlusion and stenosis of unspecified carotid artery; I70.203 Unspecified atherosclerosis of native arteries of extremities, bilateral legs; E78.5 Hyperlipidemia, unspecified; E03.9 Hypothyroidism, unspecified; Z87.891 Personal history of nicotine dependence; Z79.899 Other long term (current) drug therapy
CPT/HCPCS: 93005; 85025; 80048; 36415; 85610; 85730; 71046; 93458; 76937; C1893; Q9966; J1644; J2001; J2250; J3010; J7040; 99152; 99153; J0461

== ENCOUNTER 2024-08-10 06:35 | Day surgery (SDC) | payer OTHER ==
[2024-08-04 15:48] LABS: Absolute Eosinophils 0.1 K/uL (0-0.5); Absolute Lymphocytes (CBC) 1.2 K/uL (0.7-4.9); Absolute Monocytes 0.5 K/uL (0.1-1.3); Absolute Neutrophil 3.3 K/uL (1.8-8.0); Basophils % 0.7 % (0-1.3); Eosinophils % 1.6 % (0-4.4); Hematocrit 29.9 % (39.6-49.0); Hemoglobin 9.9 g/dL (13.6-17.9); Lymphocytes % 22.9 % (15.3-44.8); MCH 31.8 pg (27.0-35.0); MCHC 33.3 g/dL (32.0-36.0); MCV 95.7 fL (80-100); MPV 8.5 fL (7.6-11.3); Monocytes % 10.6 % (3.3-12.3); Neutrophils % 64.2 % (41.7-73.7); Platelets 145 thou/uL (152-406); RBC Red Blood Cell Count 3.13 M/uL (4.33-5.43); Red Cell Distribution Width 13.2 % (12.1-15.2)
[2024-08-04 15:57] LABS: PT Prothrombin Time 11.1 SECONDS (9.4-12.5); PTT, Activated Partial Thromb 22.9 SECONDS (24.3-36.9); Protime INR 0.99
[2024-08-04 16:08] LABS: Anion Gap 9.2 mEq/L (5.0-15.0); Potassium 4.2 mEq/L (3.5-5.1)
--- NOTE | 2024-08-09 10:23 | EKG ---
Test Date: 2024-08-04 Test Time: 15:49:00 Esthetic Dermatologist: MEASUREMENT RESULTS: Intervals: Rate: 64 IN: 192 QRSD: 112 QT: 444 QTc: 458 [place]: P: 37 IN: 192 QRS: -1 T: -4 INTERPRETIVE STATEMENTS: Normal sinus rhythm Incomplete right bundle branch block Anterior infarct, possibly acute ACUTE HI Abnormal ECG Compared to ECG 06/10/2024 14:10:39 Incomplete right bundle-branch block now present Sinus bradycardia no longer present Right bundle-branch block no longer present T-wave abnormality no longer present Possible ischemia no longer present Myocardial infarct finding still present Electronically Signed On 08-09-24 10:22:04 SALVAGE MACHINE OPERATOR by Bong Long
[2024-08-10] MEDS ORDERED: HEPA 1000U/500MLS 2,000 UNIT/1,000 ML BAG IV ONE (06:49)
[2024-08-10] MEDS ORDERED: LIDOCAINE 1% 20 ML MDV ONE (06:49)
[2024-08-10] MEDS ORDERED: NA CHLORIDE 0.9% 500 ML ONE (06:50)
[2024-08-10] MEDS ORDERED: MIDAZOLAM HCL 2 MG/2 ML INJ ONE (06:50)
[2024-08-10] MEDS ORDERED: FENTANYL CITR 100 MCG/2 ML ONE (06:50)
[2024-08-10] MEDS ORDERED: HYDRALAZINE HCL 20 MG/ML VIAL ONE (07:56)
[2024-08-10 08:43] VITALS: TEMP 97.8
[2024-08-10 11:21] VITALS: BP 167/60; O2SAT 99
--- NOTE | 2024-08-12 21:39 | OP ---
Date of Procedure: 08/10/2024 Surgeon: RAMSEY RENEE Procedure Performed: Bilateral selective carotid angiogram. Indication: Carotid stenosis. Access: Right common femoral artery 4-[place], closed with manual pressure. Complications: None. Bleeding: Less than 50 mL. Anesthesia: Total sedation time was 45 minutes. Used fentanyl and Versed. Description Of Procedure: After risks, benefits, and alternatives were explained, the patient agreed to procedure and signed informed consent. The [facility], prepped and draped in usual sterile fashion. Then, I accessed right common femoral artery us ing micropuncture kit, ultrasound guidance, fluoroscopy, placed 4-[place] sheath and took a 4 -[place] 3DRC catheter into the aortic root, engaged the right common carotid, took standard views, an d then in the left common carotid, took standard views. Then with the catheter and the sheath, manua l pressure was used for closure with good hemostasis. Findings: 1.Right common carotid is normal. Right internal carotid has 60% stenosis. External carotid is nor mal. 2.Left common carotid is normal and left internal carotid has 40% to 50% stenosis. The external car otid is normal. Conclusion: Moderate bilateral carotid stenosis. Recommendation: Medical management and close observation. SR/MODL Voice ID: [id number] Report ID: [id number]
== END 2024-08-10 11:24 | disposition home or self-care (01) ==
LOC: CCL 06:35
PROVIDERS: ATTEND Internal Medicine
DX: I65.23 Occlusion and stenosis of bilateral carotid arteries (principal); I25.10 Atherosclerotic heart disease of native coronary artery without angina pectoris; I13.0 Hypertensive heart and chronic kidney disease with heart failure and stage 1 through stage 4 chronic kidney disease, or unspecified chronic kidney disease; N18.9 Chronic kidney disease, unspecified; I50.21 Acute systolic (congestive) heart failure; E78.5 Hyperlipidemia, unspecified; E03.9 Hypothyroidism, unspecified; Z87.891 Personal history of nicotine dependence; Z79.82 Long term (current) use of aspirin; Z79.899 Other long term (current) drug therapy
CPT/HCPCS: 93005; 85025; 80048; 36415; 85610; 85730; 36222; 76937; C1893; Q9966; J0360; J2003; J2250; J3010; J7040; 99152; 99153

== ENCOUNTER 2025-06-09 06:30 | Day surgery (SDC) | payer OTHER ==
[2025-06-07 15:42] LABS: Absolute Lymphocytes (CBC) 1.0 K/uL (0.7-4.9); Hematocrit 32.6 % (39.6-49.0); Hemoglobin 11.0 g/dL (13.6-17.9); MCH 32.0 pg (27.0-35.0); MCHC 33.6 g/dL (32.0-36.0); MCV 95.3 fL (80-100); MPV 8.3 fL (7.6-11.3); Nucleated RBC Absolute Count 0.0 (0-0); Nucleated Red Blood Cells % 0.1 % (0-0); RBC Red Blood Cell Count 3.42 M/uL (4.33-5.43); White Blood Count 3.80 thou/uL (4.3-10.9)
[2025-06-07 15:53] LABS: PT Prothrombin Time 12.2 SECONDS (10-13.0); PTT, Activated Partial Thromb 29.5 SECONDS (27.2-37.4); Protime INR 1.08
[2025-06-07 16:05] LABS: Anion Gap 10.3 mEq/L (5.0-15.0); BUN Blood Urea Nitrogen 24.0 mg/dL (7-18); Glucose Level 106.0 mg/dL (74-106); Potassium 4.3 mEq/L (3.5-5.1)
--- NOTE | 2025-06-07 20:42 | RAD REPORT ---
EXAMINATION: TWO VIEW CHEST XR CLINICAL INDICATION: Male, 80 years old. Hypertension. pre procedure TECHNIQUE: 2 view radiographs of the chest were performed. COMPARISON: 06/10/2024 FINDINGS: The lungs are well inflated and clear. No pneumothorax or sizable effusion. The heart is normal in si ze. Mediastinal contours are unremarkable. IMPRESSION: No acute or significant abnormalities.
[2025-06-09] MEDS ORDERED: HEPA 1000U/500MLS 2,000 UNIT/1,000 ML BAG IV ONE (06:55)
[2025-06-09] MEDS ORDERED: HEPARIN 10,000 UNIT/10 ML VIAL IV ONE (06:56)
[2025-06-09] MEDS ORDERED: ATROPINE SULF 1 MG/10 ML SYR IV ONE (06:56)
[2025-06-09] MEDS ORDERED: HEPARIN 5000 UNIT/ML 1 ML VIAL ONE (06:56)
[2025-06-09] MEDS ORDERED: VERAPAMIL HCL 10 MG/4 ML VIAL IV ONE (06:56)
[2025-06-09] MEDS ORDERED: NITROGLYCERIN/D5W 50 MG/250 ML BTL IV ONE (06:56)
[2025-06-09] MEDS ORDERED: LIDOCAINE 1% 20 ML MDV ONE (06:56)
[2025-06-09] MEDS ORDERED: FLUMAZENIL 0.1 MG/ML (5 mL VIAL) IV ONE (06:57)
[2025-06-09] MEDS ORDERED: NALOXONE 0.4 MG/ML VIAL ONE (06:57)
[2025-06-09] MEDS ORDERED: ASPIRIN 81 MG CHEWABLE TABLET ONE (07:04)
[2025-06-09] MEDS ORDERED: MIDAZOLAM HCL 2 MG/2 ML INJ ONE (07:04)
[2025-06-09] MEDS ORDERED: FENTANYL CITR 100 MCG/2 ML ONE (07:04)
[2025-06-09] MEDS ORDERED: NA CHLORIDE 0.9% 500 ML ONE (07:05)
[2025-06-09 10:06] VITALS: BP 164/65; O2SAT 97
--- NOTE | 2025-06-09 16:46 | OP ---
Date of Procedure: 06/09/2025 Surgeon: Bryce Castillo Procedure Performed: Selective coronary angiogram. Indication: Chest pain with abnormal stress test. Access: Right common femoral artery 6-Somali closed with 6-Somali Mynx closure device. Complications: None. Bleeding: Less than 50 mL. Total Sedation Time: 45 minutes, used fentanyl an Versed. Description Of Procedure: After risks, benefits, and alternatives were explained, the patient agreed to procedure and signed informed consent. The patient was brought into cardiac catheterization [facility], prepped and draped in the usual sterile fashion. Then, I accessed right common femoral arter y using micropuncture kit, ultrasound guidance, fluoroscopy, placed 6-Somali [place] sheath and then took a 6-Somali JR4 catheter into aortic root, engaged the RCA, took standard views and then exchang ed for a 6-Somali JL4 catheter, engaged the left main, took standard views, and then removed the cath eter and the sheath, and 6-Somal[place] Mynx closure device was used for closure with good hemostasis. Findings: 1. Left main; large and normal. 2. LAD; widely patent proximal to mid LAD stent. Mid LAD has focal 30% stenosis. Diagonal branches with luminal irregularities. 3. Left circumflex; large vessel and dominant. OM branch was widely patent. There is a stent withou t disease and after the takeoff of the OM branch, there is focal 50% stenosis of the left circumflex. Rest of it is normal and the LAD providing collaterals to the RCA and the PDA on the right. 4. RCA; totally occluded at the proximal, it is a EVIDENCE CUSTODIAN. Conclusion: 1. RCA EVIDENCE CUSTODIAN with good collaterals from the left. 2. Moderate coronary artery disease elsewhere with patent OM and LAD stents. SR/MODL Voice ID: [id number] Report ID: [id number]
== END 2025-06-09 10:01 | disposition home health service (06) ==
LOC: CCL 06:30
PROVIDERS: ATTEND Internal Medicine
DX: I25.10 Atherosclerotic heart disease of native coronary artery without angina pectoris (principal); I25.82 Chronic total occlusion of coronary artery; I65.29 Occlusion and stenosis of unspecified carotid artery; I70.203 Unspecified atherosclerosis of native arteries of extremities, bilateral legs; I10 Essential (primary) hypertension; E78.5 Hyperlipidemia, unspecified; E03.9 Hypothyroidism, unspecified; Z95.5 Presence of coronary angioplasty implant and graft; Z87.891 Personal history of nicotine dependence; Z79.82 Long term (current) use of aspirin; Z79.899 Other long term (current) drug therapy
CPT/HCPCS: 93005; 85025; 80048; 36415; 85610; 85730; 71046; 93454; 76937; C1893; Q9966; C1760; J1644 ×2; J2003; J2250; J3010; J7040; 99152; J0461; J2312